=== PATIENT | male | born 1955 | race Caucasian/White ===

== ENCOUNTER → 2017-09-01 09:41 | Outpatient (CLI) | payer OTHER, SELFPAY ==
[2017-09-01 11:28] LABS: Alanine Aminotransferase 40 IU/L (21-72); Albumin 4.2 g/dL (3.5-5.0); Albumin Globulin Ratio 1.5 (1.0-2.8); Alkaline Phosphatase 63 U/L (38-126); Aspartate Aminotransferase 28 IU/L (17-59); Bilirubin Total 0.6 mg/dL (0.2-1.3); Bilirubin Unconjugated 0.4 mg/dL (0.0-1.1); Cholesterol 176 mg/dL (140-199); Globulin 2.8 g/dL (1.7-4.1); HDL Cholesterol 77 mg/dL (40-60); HEMOLYSIS < 15 (0-50); LDL Cholesterol Calculated 73 mg/dL (<100); Triglycerides 129 mg/dL (35-150)
== END ==
PROVIDERS: Family Provider Family Medicine; PCP Family Medicine; Visit Provider Family Medicine
DX: E78.00 Pure hypercholesterolemia, unspecified (principal)
CPT/HCPCS: 36415; 80061; 80076

== ENCOUNTER 2017-10-19 10:43 | Day surgery (SDC) | payer OTHER, SELFPAY ==
[2017-10-19] VITALS (19 sets, daily range): BP systolic 141–203; BP diastolic 68–109; PULSE 69–115; RESP 9–18; TEMP 36.9–38; O2SAT 80–98; BMI 48.7
--- NOTE | 2017-10-19 | PATH_ITS ---
[facility] Accession Number: [id number] . 01 Material submitted: . APPENDIX . 02 Diagnosis: Appendix, Appendectomy: Acute suppurative appendicitis with serositis. No evidence of dysplasia or malignancy. [facility]/10/24/2017 . 02 Electronically signed: . Victorina Cummins MD, Pathologist NPI- [id number] . 01 Gross description: . Received in formalin, labeled appendix, is an intact appendix (length-10.5 cm, diameter-0.9 cm) with jackson-brown smooth and shiny serosa and attached mesoappendix (up to 1.0 cm in depth). The resection margin is received stapled. The serosa is partially covered in jackson-white flaky friable exudate. The lumen contains red-brown watery fluid. The wall is up to 0.2 cm thick. No nodules, masses or lesions are identified. The resection margin is inked black. Section code: (A1) resection margin en face and three additional serial sections; (A2) one-half of the bivalve tip. ([id number]) /[facility] . 02 Pathologist provided ICD-10: K35.80 . 02 CPT . 755400 Performed at: 01 [facility] [address], [place], [place] [id number] MD Jaylen Alves MD Phone: [phone] Performed at: 02 [facility] [address] [place], [place] [id number] MD Sonu Corbin MD Phone: [phone]
[2017-10-19] MEDS: HYDROMORPHONE 0.5 MG INJ 1 MG IV ×3 (11:10→17:15)
[2017-10-19 11:49] LABS: Bacteria Urine None Seen; WBC Urine None Seen (0-5/HPF)
[2017-10-19 12:06] LABS: Add Manual Diff / Slide Review NO; Basophils Percent Auto 0.3 % (0-2); Eosinophils Percent Auto 0.2 % (2-4); Hematocrit 43.3 % (41-53); Hemoglobin 14.4 g/dL (13.5-17.5); Lymphocytes Percent Auto 8.1 % (25-40); Mean Corpuscular HGB Conc 33.4 % (30-36); Mean Corpuscular Hemoglobin 29.3 PG (26-34); Mean Corpuscular Volume 87.8 fL (80-100); Monocytes Percent Auto 7.1 % (3-14); Neutrophils Absolute Auto 14100 /uL (3000-5900); Neutrophils Percent Auto 84.3 % (50-75); Platelet Count 242 X10^3/uL (150-400); Red Blood Cell Count 4.93 X10^6/uL (4.5-5.9); Red Cell Distribution Width 14.7 % (11.6-14.8); White Blood Cell Count 16.8 X10^3/uL (4.5-11.0)
[2017-10-19 12:09] LABS: Alanine Aminotransferase 33 IU/L (21-72); Albumin 4.2 g/dL (3.5-5.0); Albumin Globulin Ratio 1.6 (1.0-2.8); Alkaline Phosphatase 65 U/L (38-126); Aspartate Aminotransferase 26 IU/L (17-59); BUN Creatinine Ratio 16.7 (6-22); Bilirubin Total 0.8 mg/dL (0.2-1.3); Blood Urea Nitrogen 15 mg/dL (9-20); Calcium 9.5 mg/dL (8.4-10.2); Carbon Dioxide 27 mmol/L (22-32); Chloride 102 mmol/L (98-107); Estimated Glomerular Filt Rate > 60.0 mL/min (>60); Globulin 2.7 g/dL (1.7-4.1); Glucose 118 mg/dL (80-110); HEMOLYSIS < 15 (0-50); Lipase 55 U/L (23-300); Potassium 4.2 mmol/L (3.4-5.1); Sodium 139 mmol/L (137-145); Total Protein 6.9 g/dL (6.3-8.2)
[2017-10-19 12:10] LABS: Lactate (Lactic Acid) 0.9 mmol/L (0.7-2.1)
[2017-10-19 12:25] LABS: Culture Indicated Urine Cult Not Indicated; RBC Urine 1-5/HPF (0-5/HPF)
--- NOTE | 2017-10-19 12:26 | DI.CT.S_ITS ---
PROCEDURE: CT ABDOMEN PELVIS W CON INDICATIONS: low right abd pain pain TECHNIQUE: After the administration of intravenous contrast, 5 mm thick sections acquired from the diaphragm to the symphysis. 5 mm coronal and sagittal reformats were acquired. For radiation dose reduction, the following was used: automated exposure control, adjustment of mA and/or kV according to patient size. COMPARISON: None. FINDINGS: Image quality: Excellent. ABDOMEN: Lung bases: Lung bases are clear. Heart size is normal. Solid organs: Liver is normal in size and enhancement. Gallbladder demonstrates cholelithiasis with no CT evidence of acute cholecystitis. Biliary system is non dilated. Pancreas enhances normally. Spleen is normal in size and enhancement. No adrenal nodules. Kidneys demonstrate normal size and enhancement, without hydronephrosis. Peritoneum and bowel: The appendix is enlarged with surrounding inflammation and wall thickening consistent with uncomplicated acute appendicitis. No obstruction or perforation (se 4 im 32). Small bowel and colon radiographic normal. The stomach is decompressed otherwise within normal limits. Nodes and vessels: No retroperitoneal or mesenteric adenopathy by size criteria. Aorta and inferior vena cava are normal in size. Miscellaneous: No ventral hernias. PELVIS: Genitourinary: Bladder wall thickness is normal. Miscellaneous: No inguinal hernias or adenopathy. 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 No vertebral body compression fractures. IMPRESSION: 1. Acute uncomplicated appendicitis. Please note, the appendix courses medially and superiorly from the cecum in the central portion of the abdomen. 2. Congenital T10 vertebral body anomaly. 3. Cholelithiasis with no CT evidence of acute cholecystitis. Dictated by: Alex Tapia M.D. on 10/19/2017 at 12:48 Approved by: Alex Tapia M.D. on 10/19/2017 at 12:55
--- NOTE | 2017-10-19 13:53 | ED_ITS ---
HPI - Abdominal Pain General Chief Complaint: Abdominal Pain Stated Complaint: ABDOMINAL PAINS Time Seen by Provider: 10/19/17 11:05 History of Present Illness HPI narrative: HPI 62-year-old morbidly obese male presents for evaluation of right lower abdominal pain that is been present since 3 AM. Patient unable to identify any provoking or relieving factors, continues to be a pass flatus, stool, but notes increased fullness and is belching more than normal. Patient denies urinary frequency or dysuria. Patient denies testicular or penile pain. M/S/F/SocHx notable for: please see HPI; remainder reviewed with patient and in chart. ROS: Negative constitutional, eye, cardiovascular, pulmonary, GI, , MSK, skin , neurologic, psychiatric, endocrine unless noted in the HPI. Exam Gen: pleasant, nontoxic-appearing, appears to be in mild to moderate discomfort. HEENT: NC, AT, PEERL, EOMI. Resp: Clear to auscultation bilaterally, normal work of breathing, no accessory muscle usage. Card: Regular rate and rhythm with no murmurs, rubs, or gallops, extremities warm and well perfused. GI: Non-tender to palpation throughout all quadrants, no focal tenderness at McBurney's point, negative Miranda's sign, non-distended, no bulges or masses appreciated, no rebound or guarding. : No right sided CVA tenderness to percussion, no left sided CVA tenderness to percussion. Normal male genitalia, testes and penis non-tender, no visual bulging in the inguinal crease bilaterally both at rest and with valsalva, no palpable protuberance to palpation in the inguinal canals bilaterally both at rest and with valsalva. However, there is right inguinal crease tenderness to palpation. MSK: No visible deformities, strength and tone WNL. Skin: Normal color with no visible lesions. Neuro: AO x 3, no facial asymmetry, vision and hearing WNL. Psych: Mood and affect appropriate. Labs / Imaging (pertinent): WBC 16.8, Hb 14.4, Na 139, K 4.2, total bilirubin 0.8, AST 26, ALT 33, ALP 65, lipase 55. UA - no bacteria, no WBCs, 1-5 RBCs, positive occult blood, negative nitrate, negative leukocyte esterase. CT abdomen/pelvis: acute uncomplicated appendicitis. Please note, the appendix courses immediately and superiorly from the cecum and the central portion of the abdomen. Congenital T10 vertebral body normally. Cholelithiasis with no CT evidence of acute cholecystitis. MDM Previous chart, nursing note, and vitals reviewed. A: 62-year-old morbidly obese male presents for evaluation of right lower abdominal pain that is been present since 3 AM. DDx: renal colic, UTI, pyelonephritis, AAA, biliary disease (colic/ cholelithiasis/cholecystitis), large bowel disease (diverticulitis/appendicitis) , direct or indirect inguinal hernia, testicular torsion, epididymitis, orchitis , epididymoorchitis, scrotal cellulitis. Evaluation: patient with acute uncomplicated appendicitis. IVF, hydromorphone 1 mg x 2, and 2 g cefotetan given. Surgery consulted. Disposition: admitted for operative intervention. Impression: appendicitis (please reference below for remainder of encounter information) Related Data Home Medications Medication Instructions Recorded Confirmed ALBUTEROL SULFATE (#VENTOLIN HFA) 0.09 mg IH Q4H PRN 10/19/17 10/19/17 ECONAZOLE 1% - 1 dose TOPICAL BID 10/19/17 10/19/17 (#SPECTAZOLE 1%) amlodipine [Norvasc] 5 mg PO DAILY 10/19/17 10/19/17 bupropion HCl [Wellbutrin SR] 100 mg PO DAILY 10/19/17 10/19/17 cetirizine [Zyrtec] 10 mg PO DAILY 10/19/17 10/19/17 fluticasone furoate [Flonase 1 spray INTRANASAL DAILY 10/19/17 10/19/17 Sensimist] fluticasone-salmeterol [Advair 1 inh INHALATION BID 10/19/17 10/19/17 Diskus] ibuprofen 200 mg PO DAILY 10/19/17 10/19/17 tizanidine 4 - 8 mg PO BEDTIME PRN 10/19/17 10/19/17 tramadol 50 mg PO BID 10/19/17 10/19/17 Previous Rx's Medication Instructions Recorded levothyroxine [Synthroid] 50 mcg PO QDAY #30 09/18/11 triamcinolone acetonide 0 gm TOPICAL BID #45 gm 09/18/11 Allergies Allergy/AdvReac Type Severity Reaction Status Date / Time No Known Drug Allergies Allergy Verified 10/19/17 17:46 [facility] Medical History Anxiety (Acute) Cholelithiasis (Acute) Depression (Acute) Hypertension (Acute) Hypothyroidism (Acute) Morbid obesity (Acute) Obstructive sleep apnea (Acute) Osteoarthritis (Acute) Surgical History History of arthroscopy of both knees (Acute) History of umbilical hernia repair (Acute) Family History: Reviewed 10/19/17 by Jim Yost MD Social History household members: spouse and children Smoking Status: Former smoker alcohol intake: current Exam Initial Vital Signs Initial Vital Signs: Vital Signs Pulse Rate 76 10/19/17 10:44 Respiratory Rate 15 10/19/17 10:44 Blood Pressure 203/106 H 10/19/17 10:44 Pulse Oximetry 98 10/19/17 10:44 Course Orders Ordered: Albuterol (Ventolin Hfa) 1 puff INH Q4H PRN PRN Reason: Dyspnea Amlodipine Besylate (Norvasc) 5 mg PO DAILY [facility] Last Admin: 10/20/17 07:09 Dose: 5 mg Bupropion HCl (Wellbutrin Sr) 100 mg PO DAILY [facility] Hydralazine HCl (Apresoline) 10 mg IV Q6H PRN PRN Reason: Hypertension Hydromorphone HCl (Dilaudid) 1 mg IV Q3H PRN PRN Reason: Pain, Severe (7-10) Ibuprofen (Advil) 200 mg PO DAILY [facility] Levothyroxine Sodium (Synthroid) 50 mcg PO 0700 [facility] Last Admin: 10/20/17 07:09 Dose: 50 mcg Loratadine (Claritin) 10 mg PO DAILY [facility] Non-Formulary Medication (Econazole 1% - (#Spectazole 1%)) 1 dose TOP BID JU Non-Formulary Medication (Fluticasone Furoate [Flonase Sensimist]) 1 spray NASAL DAILY [facility] Oxycodone HCl (Percolone) 5 mg PO Q3H PRN PRN Reason: Pain, Moderate (4-6) Last Admin: 10/20/17 06:01 Dose: 5 mg Admin: 10/20/17 00:52 Dose: 5 mg Pantoprazole Sodium (Protonix) 40 mg PO 0700 JU Fluticasone/Salmeterol (Advair 250/50 Diskus) 1 puff INH RTBID JU Sodium Chloride (Normal Saline 0.9% Flush) 10 ml IV BID JU Sodium Chloride (Normal Saline 0.9% Flush) 10 ml IV PRN PRN PRN Reason: Flush Tizanidine HCl (Zanaflex) 4 mg PO BEDTIME PRN PRN Reason: Muscle Spasm Tramadol HCl (Ultram) 50 mg PO BID JU Discontinued Medications Bupivacaine HCl (Sensorcaine 0.5% (Pf)) 30 ml INJ INTRA-OP ONE Stop: 10/19/17 20:38 Last Admin: 10/19/17 20:38 Dose: 30 ml Fentanyl (Sublimaze) 50 mcg IV Q5MIN PRN PRN Reason: Pain, Moderate (4-6) Last Admin: 10/19/17 21:27 Dose: 50 mcg Hydralazine HCl (Apresoline) 10 mg IV Q6H PRN PRN Reason: Hypertension Hydromorphone HCl (Dilaudid) 1 mg IV NOW ONE Stop: 10/19/17 11:06 Last Admin: 10/19/17 11:10 Dose: 1 mg Hydromorphone HCl (Dilaudid) 0.5 mg IV NOW ONE Stop: 10/19/17 12:27 Last Admin: 10/19/17 14:22 Dose: 0.5 mg Hydromorphone HCl (Dilaudid) 1 mg IV NOW ONE Stop: 10/19/17 13:52 Last Admin: 10/19/17 15:06 Dose: 1 mg Hydromorphone HCl (Dilaudid) 1 mg IV NOW PRN PRN Reason: pain Last Admin: 10/19/17 17:15 Dose: 1 mg Hydromorphone HCl (Dilaudid) 0.25 mg IV Q5MIN PRN PRN Reason: Pain, Mild (1-3) Cefotetan Disodium/Dextrose (Cefotan) 2 gm in 50 mls @ 100 mls/hr IV NOW ONE Stop: 10/19/17 14:19 Last Admin: 10/19/17 14:36 Dose: 100 mls/hr Sodium Chloride (Normal Saline 0.9%) 1,000 mls @ 1,000 mls/hr IV BOLUS ONE Stop: 10/19/17 14:49 Last Admin: 10/19/17 14:27 Dose: 1,000 mls/hr Cefotetan Disodium/Dextrose (Cefotan) 2 gm in 50 mls @ 100 mls/hr IV NOW ONE Stop: 10/19/17 19:44 Last Infusion: 10/19/17 19:25 Dose: 0 mls/hr Admin: 10/19/17 19:20 Dose: 100 mls/hr Lactated Ringer's (Lactated Ringers) 1,000 mls @ 125 mls/hr IV CONT JU Last Infusion: 10/19/17 22:22 Dose: 0 mls/hr Admin: 10/19/17 20:35 Dose: 21 mls/hr Infusion: 10/19/17 20:35 Dose: 21 mls/hr Admin: 10/19/17 19:16 Dose: 21 mls/hr Lidocaine/Epinephrine (Xylocaine 1% W/Epi) 20 ml INJ INTRA-OP ONE Stop: 10/19/17 20:38 Last Admin: 10/19/17 20:39 Dose: 30 ml Meperidine HCl (Demerol) 25 mg IV Q5MIN PRN PRN Reason: Pain and shivering Metoclopramide HCl (Reglan) 10 mg IV NOW PRN PRN Reason: Nausea And Vomiting Non-Formulary Medication (Cetirizine [Zyrtec]) 10 mg PO DAILY [facility] Ondansetron HCl (Zofran) 4 mg IV NOW PRN PRN Reason: Nausea And Vomiting Vital Signs - 8 hr 10/20/17 05:33 10/20/17 07:00 10/20/17 07:49 Temperature 97.6 F 98.1 F Pulse Rate 77 77 77 Respiratory Rate 16 16 Blood Pressure 142/93 H 156/92 H 160/95 H Pulse Oximetry 94 94 MDM - Abdominal Pain Lab Data Result diagrams: 10/19/17 11:56 10/19/17 11:56 Lab Results 10/19/17 10/19/17 10/19/17 Range/Units 10:59 11:56 11:56 WBC 16.8 H (4.5-11.0) X10^3/uL RBC 4.93 (4.5-5.9) X10^6/uL Hgb 14.4 (13.5-17.5) g/dL Hct 43.3 (41-53) % MCV 87.8 (80-100) fL MCH 29.3 (26-34) PG MCHC 33.4 (30-36) % RDW 14.7 (11.6-14.8) % Plt Count 242 (150-400) X10^3/uL Neut % (Auto) 84.3 H (50-75) % Lymph % (Auto) 8.1 L (25-40) % [place] % (Auto) 7.1 (3-14) % Eos % (Auto) 0.2 L (2-4) % Baso % (Auto) 0.3 (0-2) % Neut # (Auto) 25060 H (9074-8676) /uL Sodium 139 (137-145) mmol/L Potassium 4.2 (3.4-5.1) mmol/L Chloride 102 (98-107) mmol/L Carbon Dioxide 27 (22-32) mmol/L BUN 15 (9-20) mg/dL Creatinine 0.90 (0.66-1.25) mg/dL Estimated GFR > 60.0 (>60) mL/min BUN/Creatinine Ratio 16.7 (6-22) Glucose 118 H (80-110) mg/dL Lactate (0.7-2.1) mmol/L Calcium 9.5 (8.4-10.2) mg/dL Total Bilirubin 0.8 (0.2-1.3) mg/dL AST 26 (17-59) IU/L ALT 33 (21-72) IU/L Alkaline Phosphatase 65 (38-126) U/L Total Protein 6.9 (6.3-8.2) g/dL Albumin 4.2 (3.5-5.0) g/dL Globulin 2.7 (1.7-4.1) g/dL Albumin/Globulin Ratio 1.6 (1.0-2.8) Lipase 55 (23-300) U/L Urine RBC 1-5/hpf (0-5/HPF) Urine WBC None seen (0-5/HPF) Urine Bacteria None seen (None) Ur Culture Indicated? Cult not indicated Micro UA Comment Not Reportable 10/19/17 Range/Units 11:56 WBC (4.5-11.0) X10^3/uL RBC (4.5-5.9) X10^6/uL Hgb (13.5-17.5) g/dL Hct (41-53) % MCV (80-100) fL MCH (26-34) PG MCHC (30-36) % RDW (11.6-14.8) % Plt Count (150-400) X10^3/uL Neut % (Auto) (50-75) % Lymph % (Auto) (25-40) % [place] % (Auto) (3-14) % Eos % (Auto) (2-4) % Baso % (Auto) (0-2) % Neut # (Auto) (0106-3178) /uL Sodium (137-145) mmol/L Potassium (3.4-5.1) mmol/L Chloride (98-107) mmol/L Carbon Dioxide (22-32) mmol/L BUN (9-20) mg/dL Creatinine (0.66-1.25) mg/dL Estimated GFR (>60) mL/min BUN/Creatinine Ratio (6-22) Glucose (80-110) mg/dL Lactate 0.9 (0.7-2.1) mmol/L Calcium (8.4-10.2) mg/dL Total Bilirubin (0.2-1.3) mg/dL AST (17-59) IU/L ALT (21-72) IU/L Alkaline Phosphatase (38-126) U/L Total Protein (6.3-8.2) g/dL Albumin (3.5-5.0) g/dL Globulin (1.7-4.1) g/dL Albumin/Globulin Ratio (1.0-2.8) Lipase (23-300) U/L Urine RBC (0-5/HPF) Urine WBC (0-5/HPF) Urine Bacteria (None) Ur Culture Indicated? Micro UA Comment Point of care testing: Urine Dip Bedside Urine Glucose Negative Bedside Urine Bilirubin - Negative Bedside Urine Ketone - Negative Urine Specific [place] 1.020 Bedside Urine Occult Blood +/- Bedside Urine pH 7.5 Bedside Urine Protein - Negative Bedside Urine Urobilinogen - Negative Bedside Urine Nitrite - Negative Bedside Urine Leukocytes - Negative Esterase Discharge Plan Departure Patient Disposition: Admitted As Inpatient Discharge Date/Time: 10/19/17 18:40 Interventions: ED Discharge Assessment Last Done: 10/19/17 18:40 Admit Date/Time: 10/19/17 17:23 Admit Provider: Jim Yost
[2017-10-19] MEDS: HYDROMORPHONE 1 MG INJ 0.5 MG IV (14:22)
[2017-10-19] MEDS: SODIUM CHLORIDE 0.9% 1,000 ML 1000 ML IV (14:27)
[2017-10-19] MEDS: CEFOTETAN 2 GM/50 ML PIGGYBACK IV ×2 (14:36→19:20)
--- NOTE | 2017-10-19 15:22 | PC.NURSE ---
patient states his pain is much better now. Plan is to admit patient for surgery. schedule is quite full and so surgery will be later. Attempting to admit to the floor Hospitalist notified and ER charge notified.
--- NOTE | 2017-10-19 18:30 | P.HP_ITS ---
History of Present Illness Date Patient Seen: 10/19/17 Time Patient Seen: 18:25 Chief complaint: ABDOMINAL PAINS Narrative: 62-year-old morbidly obese male who presented the emergency department earlier this afternoon with complaints of progressive sharp right lower quadrant abdominal pain throughout the entire day today. He awoke feeling somewhat unwell but was able to eat breakfast at approximately 6 o' clock this morning. However, he began to feel nauseated shortly thereafter. He did not vomit. He is not nauseated currently. However he is anorexic. He felt like taking no oral intake throughout the remainder of the day. In fact, his breakfast was his last meal of the day today. Pain became much more sharp and unrelenting in nature isolated to the right lower quadrant. Pain does not radiate. He has had no subjective fever or chills. No difficulties with dysuria or hematuria. He has occasional constipation but this is not new given the current episode. No recent melena, hematochezia, or bright red blood per rectum. Patient History Medical History Anxiety (Acute) Cholelithiasis (Acute) Depression (Acute) Hypertension (Acute) Hypothyroidism (Acute) Morbid obesity (Acute) Obstructive sleep apnea (Acute) Osteoarthritis (Acute) Surgical History History of arthroscopy of both knees (Acute) History of umbilical hernia repair (Acute) Family & Social History Family History: Reviewed 10/19/17 by Jim Yost MD Meds Home Medications Medication Instructions Recorded Confirmed Type levothyroxine [Synthroid] 50 mcg PO QDAY #30 09/18/11 10/19/17 Rx triamcinolone acetonide 0 gm TOPICAL BID #45 gm 09/18/11 10/19/17 Rx ALBUTEROL SULFATE (#VENTOLIN HFA) 0.09 mg IH Q4H PRN 10/19/17 10/19/17 History ECONAZOLE 1% - 1 dose TOPICAL BID 10/19/17 10/19/17 History (#SPECTAZOLE 1%) amlodipine [Norvasc] 5 mg PO DAILY 10/19/17 10/19/17 History bupropion HCl [Wellbutrin SR] 100 mg PO DAILY 10/19/17 10/19/17 History cetirizine [Zyrtec] 10 mg PO DAILY 10/19/17 10/19/17 History fluticasone furoate [Flonase 1 spray INTRANASAL DAILY 10/19/17 10/19/17 History Sensimist] fluticasone-salmeterol [Advair 1 inh INHALATION BID 10/19/17 10/19/17 History Diskus] ibuprofen 200 mg PO DAILY 10/19/17 10/19/17 History tizanidine 4 - 8 mg PO BEDTIME PRN 10/19/17 10/19/17 History tramadol 50 mg PO BID 10/19/17 10/19/17 History Allergies Allergy/AdvReac Type Severity Reaction Status Date / Time No Known Drug Allergies Allergy Verified 10/19/17 17:46 Review of Systems Review of Systems All systems reviewed & are unremarkable except as noted in HPI and below Exam Vital Signs (past 8 hours): - 10/19/17 10:44 10/19/17 10:59 10/19/17 12:00 Temperature 98.5 F Pulse Rate 76 69 Respiratory Rate 15 18 Blood Pressure 203/106 H Blood Pressure [Right Arm] 167/93 H Pulse Oximetry 98 94 10/19/17 13:25 10/19/17 14:30 10/19/17 16:51 Temperature Pulse Rate 74 82 93 H Respiratory Rate 14 17 16 Blood Pressure Blood Pressure [Right Arm] 143/68 H 163/96 H 141/80 H Pulse Oximetry 97 97 10/19/17 17:58 Temperature 100.4 F H Pulse Rate 107 H Respiratory Rate 16 Blood Pressure 141/89 H Blood Pressure [Right Arm] Pulse Oximetry 92 Oxygen Delivery Method Room Air Narrative Exam Narrative: Morbidly obese male in excess of 300 lb lying in a gurney in mild discomfort. No acute distress however. Alert oriented x3. is at the bedside. Sclera nonicteric Regular rate and rhythm Poor inspiratory effort with mild relative hypoxia. Patient states deep breaths exacerbated his pain Abdomen is morbidly obese and nondistended. Well-healed scars from previous hernia repair. Tender in the right lower quadrant with involuntary guarding. Positive Rovsing sign. Extremities show no clubbing or cyanosis Objective Labs Result Diagrams: 10/19/17 11:56 10/19/17 11:56 Labs: Laboratory Results - last 24 hr 10/19/17 10/19/17 10/19/17 10:59 11:56 11:56 WBC 16.8 H RBC 4.93 Hgb 14.4 Hct 43.3 MCV 87.8 MCH 29.3 MCHC 33.4 RDW 14.7 Plt Count 242 Neut % (Auto) 84.3 H Lymph % (Auto) 8.1 L [place] % (Auto) 7.1 Eos % (Auto) 0.2 L Baso % (Auto) 0.3 Neut # (Auto) 58990 H Sodium 139 Potassium 4.2 Chloride 102 Carbon Dioxide 27 BUN 15 Creatinine 0.90 Estimated GFR > 60.0 BUN/Creatinine Ratio 16.7 Glucose 118 H Lactate Calcium 9.5 Total Bilirubin 0.8 AST 26 ALT 33 Alkaline Phosphatase 65 Total Protein 6.9 Albumin 4.2 Globulin 2.7 Albumin/Globulin Ratio 1.6 Lipase 55 Urine RBC 1-5/hpf Urine WBC None seen Urine Bacteria None seen Ur Culture Indicated? Cult not indicated Micro UA Comment Not Reportable 10/19/17 11:56 WBC RBC Hgb Hct MCV MCH MCHC RDW Plt Count Neut % (Auto) Lymph % (Auto) [place] % (Auto) Eos % (Auto) Baso % (Auto) Neut # (Auto) Sodium Potassium Chloride Carbon Dioxide BUN Creatinine Estimated GFR BUN/Creatinine Ratio Glucose Lactate 0.9 Calcium Total Bilirubin AST ALT Alkaline Phosphatase Total Protein Albumin Globulin Albumin/Globulin Ratio Lipase Urine RBC Urine WBC Urine Bacteria Ur Culture Indicated? Micro UA Comment I have personally reviewed his CT scan of the abdomen and pelvis. He has evidence of acute appendicitis with enlarged appendix and associated inflammatory changes coursing medially at the level the umbilicus. No free fluid. No obvious perforation. Incidental cholelithiasis is noted with no inflammation around the gallbladder. Otherwise normal study. Assessment & Plan Plan: Assessment/Plan Narrative: 62-year-old morbidly obese male with evidence of acute appendicitis. Examination, CT scan findings, and laboratory findings are consistent with the diagnosis. I have recommended laparoscopic appendectomy. Technical details of the procedure were discussed. Anticipated recovery and healing times are also reviewed with him and his . Risks, benefits, alternatives of surgery were explained. Risks including but not limited to anesthesia, bleeding, infection, pain, abscess, scars, need to convert to open procedure, need for drains, need for transfusion, colon injury, small bowel injury, bladder injury, right ureter injury, liver injury, gastric injury, appendiceal stump leak, and need for further major abdominal surgery were all discussed in detail. I also explained small possibility of normal appendix, but I would plan appendectomy even if the appendix appeared grossly normal. I also expressed my concern regarding his relative hypo ventilation due to morbid obesity. I emphasized the absolute necessity for postoperative deep breathing, coughing, and incentive spirometry. All questions were answered to his satisfaction, and he voiced understanding. Consent was placed on the chart. Orders were written. We will proceed urgently this evening.
[2017-10-19] MEDS: LACTATED RINGERS 1,000 ML 21 ML IV ×2 (19:16→20:35)
--- NOTE | 2017-10-19 19:52 | SUR.OPER ---
Supine on padded OR bed, head on pillow, arms secured on padded arm boards at <90 degrees abduction, legs uncrossed, safety belt at thigh, tape over blanket over lower legs.
[2017-10-19] MEDS: BUPIVACAINE 0.5% (PF) VIAL 30 ML INJ (20:38)
[2017-10-19] MEDS: LIDOCAINE 1% W/EPI INJ 20 ML INJ (20:39)
[2017-10-19] MEDS: fentaNYL 100 MCG/2 ML INJ 50 MCG IV (21:27)
--- NOTE | 2017-10-19 21:36 | P.OP_ITS ---
Operative Date/Time/Diagnoses Date of procedure: 10/19/17 Time of procedure: 21:26 Pre-op diagnosis: Acute suppurative appendicitis Post-op diagnosis: same Procedure & Clinicians Procedure: 1. Laparoscopic appendectomy Same procedure as scheduled: Yes Indications: 62-year-old morbidly obese male who presented to the emergency department with progressive right-sided abdominal pain throughout the course of the day today. Examination and evaluation were consistent with acute appendicitis. Emergent laparoscopic appendectomy was recommended. Surgeon: Jim Yost Click Yes if Unassisted: Yes Anesthesia Type: General Operative Notes Findings: 1. Acutely inflamed suppurative appendix without evidence of rupture 2. No significant free fluid in the abdomen without evidence of any abscess as well 3. Generous thick omentum draping the entire abdominal contents. The only visible structure was the left lobe of the liver which appeared grossly normal. I could not visualize any other structures. Closure Type: primary Specimen(s): other (Appendix) Implants & Drains: None Applied: catheter (Lanier catheter for the case then removed afterwards) Estimated Blood Loss (mL): 20 Blood products transfused: none Procedure in detail: After obtaining informed consent patient was brought to the operating room placed supine on the table. After satisfactory induction of anesthesia the abdomen was prepped and draped in usual sterile fashion after placing a Lanier catheter into the urinary bladder for the case. A SCOAP time- out was performed per standard protocol. A 1 :1 mixture 1% lidocaine with 1 100 ,000 epinephrine and 0.5% plain Marcaine was injected in the skin and subcutaneous tissue of the upper midline abdomen several cm above the umbilicus for postoperative analgesia. A vertical midline incision was made for distance of approximately 3 cm at that location with a 11 scalpel blade. Blunt dissection revealed the rectus fascia which was divided in the midline under direct visualization with the 11 scalpel blade. Fascial edges was secured bilaterally with Darci clamps and elevated into the operative field. Two individual 0 Vicryl sutures were placed superiorly and inferiorly to secure the fascia. Underlying peritoneum was entered under direct visualization with a hemostat and a 12 mm blunt Xiong trocar was inserted. Carbon dioxide pneumoperitoneum was created in the abdomen was visually explored with a 30 degree 5 mm laparoscoped. Findings are as above. Under direct laparoscopic visualization to individual bariatric 5 mm trocars were inserted into the lower left abdomen after achieving local anesthesia. Bariatric instruments were used to manipulate the omentum in order to expose the cecum. The cecum was then followed to the base of the appendix. The appendix was noted to be suppurative and acutely inflamed. There were inflammatory adhesions to the adjacent terminal ileum. Meticulous blunt dissection was employed to elevate the appendix into the operative field. The dissection was somewhat difficult because of the patient's body habitus and acute inflammatory process. Eventually we were able to liberate the appendix and divide the mesoappendix with [place] dissect air is adjacent to the appendix itself. Mesoappendix was then divided with an application of the Endo-[place] 45 mm stapler using a vascular load. A 2nd application of the vascular stapler was employed to complete the division of the mesoappendix adjacent to the base of the appendix. Hemostasis was verified. Base of the appendix was soft and divided with a single application of the Endo [place] 45 mm stapler using a tissue load. Specimen was placed in an endo-pouch and retrieved through the 12 mm trocar site. Specimen was sent for permanent section. All staple lines were then meticulously examined and noted to be intact. Hemostasis was verified. No evidence of any appendiceal stump leak was noted. Right lower quadrant was irrigated with copious amount sterile saline solution which was suctioned from the abdomen and noted to be clear. Instruments and trocars were then removed and hemostasis verified. Carbon dioxide was evacuated. Fascia at the supraumbilical incision was closed with the previously placed 0 Vicryl suture. Skin at all 3 incisions was then closed in a running subcuticular fashion using 4 0 Monocryl suture. Dermal adhesive was placed to the skin. Anesthesia was reversed the patient extubated in the operating room. Lanier catheter was removed at the end of the case. He was taken recovery in stable condition. Complications: none Condition: stable Disposition: PACU Plan for aftercare: 1. Admit the regular surgical floor for ongoing convalescence
--- NOTE | 2017-10-19 21:51 | SUR.PHASEI ---
BP 176/104, O2 SAT 89-92% 3LNC. Dr Yost notified, orders pending, ok to transfer per MD.
--- NOTE | 2017-10-19 21:59 | SUR.PHASEI ---
Report called to Delma.
--- NOTE | 2017-10-19 22:20 | SUR.PHASEI ---
Patient transferred to the floor with oxygen. VS unchanged. Surgical sites CDI. RT present. Report to ABBI Koroma. Partial with patient, glasses and belongings bag with spouse. IV saline locked.
[2017-10-20 00:10] VITALS: BP 175/94; PULSE 92; RESP 16; TEMP 36.8; O2SAT 94
[2017-10-20] MEDS: OXYCODONE IR 5 MG TABLET PO ×2 (00:52→06:01)
[2017-10-20 05:33] VITALS: BP 142/93; PULSE 77; RESP 16; TEMP 36.4; O2SAT 94
[2017-10-20 07:00] VITALS: BP 156/92; PULSE 77
[2017-10-20] MEDS: LEVOTHYROXINE 50 MCG TABLET PO (07:09)
[2017-10-20] MEDS: AMLODIPINE 5 MG TABLET PO (07:09)
--- NOTE | 2017-10-20 07:27 | PC.NURSE ---
0763 [facility]. [facility], admin. Last B/P 156/92, HR 77, denies any HALL or any S/S of hypertension. Report given to day RN. Will monitor.
[2017-10-20 07:49] VITALS: BP 160/95; PULSE 77; RESP 16; TEMP 36.7; O2SAT 94
[2017-10-20] MEDS: SODIUM CHLORIDE 0.9% FLUSH 10 ML IV (08:36)
[2017-10-20] MEDS: buPROPion SR 100 MG TAB PO (08:36)
[2017-10-20] MEDS: IBUPROFEN 200 MG TABLET PO (08:36)
[2017-10-20] MEDS: TRAMADOL 50 MG TABLET PO (08:36)
[2017-10-20] MEDS: LORATADINE 10 MG TABLET PO (08:37)
--- NOTE | 2017-10-20 08:43 | PM.DS.1 ---
History of Present Illness Date Patient Seen: 10/20/17 Time Patient Seen: 08:43 Chief complaint: ABDOMINAL PAINS Narrative: 62-year-old morbidly obese male who presented the emergency department earlier this afternoon with complaints of progressive sharp right lower quadrant abdominal pain throughout the entire day today. He awoke feeling somewhat unwell but was able to eat breakfast at approximately 6 o'clock this morning. However, he began to feel nauseated shortly thereafter. He did not vomit. He is not nauseated currently. However he is anorexic. He felt like taking no oral intake throughout the remainder of the day. In fact, his breakfast was his last meal of the day today. Pain became much more sharp and unrelenting in nature isolated to the right lower quadrant. Pain does not radiate. He has had no subjective fever or chills. No difficulties with dysuria or hematuria. He has occasional constipation but this is not new given the current episode. No recent melena, hematochezia, or bright red blood per rectum. Discharge Providers Date of admission: 10/19/17 17:23 Primary care physician: Niles Wesley MD Consults: 10/19/17 18:01 Consult to Respiratory Therapy Evaluate & Treat Comment: Physician Instructions: Evaluate and treat 10/19/17 19:15 Consult to Discharge Planning Routine Comment: Discharge provider: Jim Yost MD Summary Discharge Diagnosis: 1. Acute suppurative appendicitis 2. Morbid obesity 3. Hypoventilation syndrome secondary to morbid obesity 4. Osteoarthritis 5. Chronic back pain 6. History of umbilical hernia repair with mesh 7. History of bilateral knee arthroscopy 8. Obstructive sleep apnea 9. Asthma 10. Hypertension 11. Seasonal allergies 12. Depression and anxiety 13. Muscle spasm 14. Hypothyroidism Hospital Course: Patient was taken from the emergency department to the operating room for emergent laparoscopic appendectomy. He tolerated the procedure well. Postoperatively he did have significant hypoventilation and obstructive sleep apnea consistent with his baseline due to morbid obesity. He was initially placed on CPAP at night and oxygen therapy which was weaned by postoperative day 1. He is stable on room air. He is ambulating without difficulty. His pain is well controlled with oral agents. He has had return of spontaneous bowel bladder function. Incisions are healing nicely without drainage. He has no evidence of any infectious complications. He is tolerating a regular diet without difficulty. His initial postoperative hypertension has resolved with medications and he has been restarted on his usual home regimen to good effect. We discussed weight loss and weight control which I believe would benefit him greatly. Because of his stable condition on postoperative day 1 he is discharged home. He has been instructed to call or return sooner before his scheduled appointment in 2 weeks if he has any fever, chills, nausea, vomiting, inability to tolerate a diet, progressive pain, shortness of breath, or wound drainage. Status at Discharge Cognitive/behavioral status at discharge: Alert oriented x3 Functional status at discharge: independent ambulation Overall status at discharge: patient is progressing back to baseline Time Spent with Patient Less than 30 minutes Exam Vital Signs (past 8 hours): - 10/20/17 05:33 10/20/17 07:00 10/20/17 07:49 Temperature 97.6 F 98.1 F Pulse Rate 77 77 77 Respiratory Rate 16 16 Blood Pressure 142/93 H 156/92 H 160/95 H Pulse Oximetry 94 94 Oxygen Delivery Method Nasal Cannula Oxygen Flow Rate 1 Narrative Exam Narrative: Well-nourished well-developed morbidly obese male lying comfortably in bed in no acute distress. Alert oriented x3. Sclera nonicteric Room-air saturation 92% No fevers or tachycardia since surgery. Blood pressure has returned to baseline levels as well Chest clear to auscultation although his breath sounds are diminished bilaterally due to body habitus. No crackles or wheezes. Regular rate and rhythm Abdomen is morbidly obese but soft and nondistended. He is appropriately tender to palpation at the incisions without guarding or rebound. Wounds are all clean, dry, and intact without erythema or ecchymoses. Extremities show no clubbing or cyanosis Objective Labs Result Diagrams: 10/19/17 11:56 10/19/17 11:56 Labs: Laboratory Results - last 24 hr 10/19/17 10/19/17 10/19/17 10:59 11:56 11:56 WBC 16.8 H RBC 4.93 Hgb 14.4 Hct 43.3 MCV 87.8 MCH 29.3 MCHC 33.4 RDW 14.7 Plt Count 242 Neut % (Auto) 84.3 H Lymph % (Auto) 8.1 L Culberson % (Auto) 7.1 Eos % (Auto) 0.2 L Baso % (Auto) 0.3 Neut # (Auto) 72253 H Sodium 139 Potassium 4.2 Chloride 102 Carbon Dioxide 27 BUN 15 Creatinine 0.90 Estimated GFR > 60.0 BUN/Creatinine Ratio 16.7 Glucose 118 H Lactate Calcium 9.5 Total Bilirubin 0.8 AST 26 ALT 33 Alkaline Phosphatase 65 Total Protein 6.9 Albumin 4.2 Globulin 2.7 Albumin/Globulin Ratio 1.6 Lipase 55 Urine RBC 1-5/hpf Urine WBC None seen Urine Bacteria None seen Ur Culture Indicated? Cult not indicated Micro UA Comment Not Reportable 10/19/17 11:56 WBC RBC Hgb Hct MCV MCH MCHC RDW Plt Count Neut % (Auto) Lymph % (Auto) Culbers[place] % (Auto) Eos % (Auto) Baso % (Auto) Neut # (Auto) Sodium Potassium Chloride Carbon Dioxide BUN Creatinine Estimated GFR BUN/Creatinine Ratio Glucose Lactate 0.9 Calcium Total Bilirubin AST ALT Alkaline Phosphatase Total Protein Albumin Globulin Albumin/Globulin Ratio Lipase Urine RBC Urine WBC Urine Bacteria Ur Culture Indicated? Micro UA Comment Discharge Plan Discharge Plan Patient Disposition: Home, Self-Care Discharge comment: Use CPAP as directed Provider Discharge Instructions Diet: Diet as Tolerated Activity: May walk as much as desired May ride in vehicle May climb stairs May shower beginning October 20, 2017 No [address] while taking opioid pain medications Cold/Heat Therapy: May apply ice pack to incisions as needed for comfort Other treatments: Use incentive spirometry every hour while awake as instructed Wound Care Report to your healthcare provider any signs of infection, such as:: chills, fever, increased pain and unusual drainage Dressing: No dressing necessary Other wound treatment: Do not soak incisions in bathtub or pool for 2 weeks Discharge Data Primary Care Provider: Niles Wesley Attending Provider: Jim Yost Admit Date/Time: 10/19/17 17:23 Quality VTE Deep Vein Thrombosis/Pulmonary Embolism Present on Admission: No
[2017-10-20 09:00] VITALS: PULSE 86; RESP 16; O2SAT 95
[2017-10-20] MEDS: FLUTICASONE/SALMETEROL 250/50 14 PUFF DISKUS INH (09:00)
--- NOTE | 2017-10-20 09:53 | PC.NURSE ---
Pt alert and oriented, offers no overt c/o presently. anticipates going home today. Dr. Yost in to discuss D/C.
--- NOTE | 2017-10-20 10:03 | CM.DPNOTE ---
Discharge Planning/Care Management DCP: case received, EMR reviewed, conferred with ABBI Ramires and then met with pt and his Angelique. Introduced self and role. Pt is a 62 year old male who admitted yesterday evening to care of surgeon: Dr. Yost. Payer: [facility] Pt was taken to surgery for a lap appendectomy (in setting of morbid obesity). Dr. Yost saw him this morning, said he was doing very well and has ok'd him for home today. Pt and Angelique both say they are comfortable with this. Pt is mobilizing and eating without difficulty at this time. P: home today, clinic followup, when RN completes the dc paperwork. CM Discharge Assessment Start: 10/20/17 10:01 Freq: Status: Active Protocol: Document 10/20/17 10:02 ITV (Rec: 10/20/17 10:03 ITV [id number]) Discharge Planning Assessment History Provided By Patient Family Member Medical Record Is this patient on Medicare? No Prior Living Arrangements House Household Members spouse children Independent with ADL's Yes Is patient alert and oriented? Yes Referrals Initiated None needed Discharge Plan Home Transportation Arrangement is here to drive him Review Status In Process Next Review Type Continued Stay Review
--- NOTE | 2017-10-20 11:47 | PC.NURSE ---
12:30 Pt given D/C instructions along with his . Pt and state understanding of instructions and asked pertinent questions. Pt did have BM prior to D/C. Iv H.L. D/C'd intact. Pt's gait steady though slow. Pt able to get into private vehicle with minimal assist. Good supportive family at D/C
== END 2017-10-20 11:35 | disposition home or self-care (01) ==
LOC: ED 14:26 → AC 10-20 08:43 → OR 10-21 11:55 → AC 10-21 12:06
PROVIDERS: Emergency Provider Emergency Medicine; Family Provider Family Medicine; PCP Family Medicine; Visit Provider Surgery
PROC: 0DTJ4ZZ Resection of Appendix, Percutaneous Endoscopic Approach (ICD-10-PCS; CPT 44970; principal; 2017-10-19 17:00)
DX: K35.80 Unspecified acute appendicitis (principal); E66.01 Morbid (severe) obesity due to excess calories; Z87.891 Personal history of nicotine dependence
CPT/HCPCS: 44970; 36415; 74177; 80053; 81003; 81015; 83605; 83690; 85025; 94640; 94762; 96365; 96375; 96376; 99220; 99283; 99284; G0378; J0330; J1100; J1170; J2405; J2704; J3010; Q9967

== ENCOUNTER → 2018-05-23 10:22 | Outpatient (CLI) | payer OTHER, SELFPAY ==
[2017-10-19 23:46] VITALS: BMI 48.7
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
== END ==
PROVIDERS: PCP Family Medicine; Visit Provider Family Medicine
DX: M50.31 Other cervical disc degeneration, high cervical region (principal); M47.812 Spondylosis without myelopathy or radiculopathy, cervical region; Z98.1 Arthrodesis status
CPT/HCPCS: 72050

== ENCOUNTER 2018-10-10 07:30 | Outpatient (CLI) | payer OTHER, SELFPAY ==
[2018-06-05 10:41] VITALS: BMI 48.7
[2018-10-10] VITALS (10 sets, daily range): BP systolic 130–150; BP diastolic 84–107; PULSE 65–76; RESP 16; TEMP 36.9; O2SAT 94–98
--- NOTE | 2018-10-10 07:33 | DI.RAD.S_ITS ---
PROCEDURE: PAIN C/T INTERLAMINAR INJECT INDICATIONS: SPINAL STENOSIS FINDINGS: Fluoroscopic spot filming was performed to verify placement of spinal needles at the C5-C6 level(s), as labeled on the films. Appropriate location(s) of the needle tip(s) was confirmed by injection of iodinated contrast. IMPRESSION: Fluoroscopy for pain management. Dictated by: Yarelis Foss M.D. on 10/10/2018 at 14:19 Approved by: Yarelis Foss M.D. on 10/10/2018 at 14:19
[2018-10-10] MEDS: MIDAZOLAM 5 MG/5 ML VIAL IV (08:37)
[2018-10-10] MEDS: fentaNYL 100 MCG/2 ML INJ 50 MCG IV (08:37)
[2018-10-10] MEDS: IOPAMIDOL 15 ML VIAL 3 ML INJ (08:39)
[2018-10-10] MEDS: LIDOCAINE 1% 20 ML INJ 5 ML INJ (08:40)
[2018-10-10] MEDS: DEXAMETHASONE 10 MG/ML VIAL 30 MG INJ (08:40)
--- NOTE | 2018-10-10 08:52 | PC.NURSE ---
Pt tolerated procedure well after we were able to position him correctly. Able to get patient off the table and into the wheelchair with standby assist. Transferred pt via wheelchair to pre procedure room for continued monitoring with Erika GO.
--- NOTE | 2018-10-10 08:58 | P.PCN_ITS ---
Procedures Date/Time Date of procedure: 10/10/18 Time of procedure: 08:57 General Procedure description: PREOP DIAGNOSIS 1. CERVICAL STENOSIS, 2. CERVICAL HNP WITH UPPER EXTREMITY RADICULAR FEATURES, POST OP DIAGNOSIS 1. CERVICAL STENOSIS, 2. CERVICAL HNP WITH UPPER EXTREMITY RADICULAR FEATURES, PROCEDURES 1. FLUORSCOPICALLY GUIDED CONTRAST CONTROLLED INTERLAMINAR EPIDURAL STEROID INJECTION - C5/6 TL FRANCINE PHYSICIAN: Niles Nicholas, DO BARRERA Junito is referred by Dr. Wesley for treatment of Cervical HNP with Upper Extremity Paresthesias. FINDINGS Cervical Stenosis due to disc deterioration and nerve root irritation and nerve root irritation DESCRIPTION OF PROCEDURE Fluoroscopically guided, contrast-controlled C5/6 translaminar epidural steroid injection with conscious sedation. Following review of allergy and review of potential side effects and complications, including, but not necessarily limited to, infection, allergic reaction, local tissue breakdown, temporary as well as permanent nerve injury, stroke, paralysis, and possible , the patient indicated that patient understood and agreed to proceed. An informed consent document was signed by the patient, witnessed by a nurse, and placed in the patient's chart. Additionally, other treatment options including modalities, medications, and physical therapy were reviewed with the patient. After review of previous anaesthesic history and IV conscious sedation the patient was deemed safe to proceed with todays procedure with IV conscious sedation as ASA class II designation. Safety time-out was performed to confirm patient ID, procedure to be performed and site of procedure. IV sedation was accomplished with a combination of 2mg of Versed and 50mcg of Fentanyl administered by the RN after DO order, titrated to patient comfort during the course of the procedure while the patient remained responsive to all verbal commands. In the prone position, following sterile prep and drape of the cervical region, the C6/7 translaminar space was identified fluoroscopically. The skin was anesthetized via a 25-gauge 1.5-inch needle with 1% lidocaine solution. At this point, a 25-gauge, 2.5-inch short bevel spinal needle was atraumatically in troduced and advanced under fluoroscopic guidance into epidural space at the C6/7 translaminar space. Depth was confirmed on lateral view. Radiological data, including multiple fluoroscopic views of the cervical spine, reveal a spinal needle at the C6/7 translaminar space. Lateral views then show placement of the needle in the epidural space. Subsequent views show contrast material flowing superiorly and inferiorly in the epidural space. DSA fluoroscopy with live contrast injection, once again, confirmed no vascular or intrathecal uptake. At this point, using loss of resistance technique with saline and air, the epidural space was entered. Following negative aspiration, injection of approximately 1.5 cc of Isovue-200 with live fluoroscopy in the AP view confirmed epidural flow in the epidural space without vascular or intrathecal uptake observed. Subsequently, a test dose of 1 cc of 1% lidocaine solution was injected and patient was observed for two minutes without signs or symptoms of complications, including abdominal pain, shortness of breath, bilateral upper or lower extremity weakness, nausea and vomiting, prior to steroid injection. At this point, 3cc or 30mg of dexamethasone was then injected without incident. The patient tolerated the procedure well without signs or symptoms of complications prior to being transferred to the recovery area for further monit oring, The patient was then transferred to the recovery area where they were observed for an appropriate period of time after the injection. The patient reported a VAS score of 6 prior to the procedure and a post-procedure VAS of 0. Total Fluoroscopy Time: 37.0 seconds Total Conscious Time: 24min POST OP INSTRUCTIONS The patient was provided a Pain Log to continue to record their response to the target-specific procedure prior to follow-up visit with the referring provider. Additionally, specific post-injection care instructions and a contact number to our office were provided if concerns arise regarding possible complications associated with the procedure are suspected. Niles Nicholas DO Complications: none
--- NOTE | 2018-10-10 09:03 | PC.NURSE ---
ACCEPTED CARE OF PT IN POST PROC AREA IN STABLE CONDITION
== END 2018-10-10 09:54 | disposition home or self-care (01) ==
LOC: RAD 07:32
PROVIDERS: PCP Family Medicine; Visit Provider Physical Medicine & Rehabilitation
DX: M48.02 Spinal stenosis, cervical region (principal); M50.122 Cervical disc disorder at C5-C6 level with radiculopathy
CPT/HCPCS: 62321; 99152; J1100; J2250; J3010

== ENCOUNTER → 2019-03-12 12:32 | Outpatient (CLI) | payer OTHER, SELFPAY ==
[2018-06-05 10:41] VITALS: BMI 48.7
--- NOTE | 2019-03-12 | DI.RAD.S_ITS ---
PROCEDURE: XR EYE FOREIGN BODY RT INDICATIONS: foreign body in eye region-r/o metal frag for MRI TECHNIQUE: A single view of the orbits was acquired. COMPARISON: None. FINDINGS: Soft tissues: No metallic foreign bodies are visualized around the orbits. Bones: Bony structures appear unremarkable. Visualized sinuses appear clear. IMPRESSION: No foreign body suggestive of metallic fragment is found. Dictated by: Fredi Chris M.D. on 03/12/2019 at 13:41 Approved by: Fredi Chris M.D. on 03/12/2019 at 13:42
== END ==
PROVIDERS: Family Provider Family Medicine; PCP Family Medicine; Visit Provider Preventive Medicine Occupational Medicine
DX: T15.91XA Foreign body on external eye, part unspecified, right eye, initial encounter (principal)
CPT/HCPCS: 70030

== ENCOUNTER → 2020-06-09 15:40 | Outpatient (CLI) | payer OTHER, SELFPAY ==
[2018-06-05 10:41] VITALS: BMI 48.7
--- NOTE | 2020-06-09 15:43 | DI.RAD.S_ITS ---
PROCEDURE: XR CHEST 2V INDICATIONS: COUGH/DYSPNEA TECHNIQUE: 2 views of the chest were acquired. COMPARISON: [facility], CHEST 2 VIEW, 01/11/2016, 10:38. [facility], CHEST 2 VIEW, 07/01/2008, 15:16. FINDINGS: Surgical changes and devices: None. Lungs and pleura: Lungs are mildly abnormal with a chronic mild interstitial prominence and there is mildly reduced inspiratory volume. A focus of pneumonia is not found.. No pleural effusions or pneumothorax. Mediastinum: Mediastinal contours are normal. Heart size is normal. Bones and chest wall: No suspicious bony abnormalities. Soft tissues appear unremarkable. IMPRESSION: Mild chronic interstitial prominence, no focal pneumonia seen. Reduced inspiration, which crowds bronchovascular markings at each lung base. Dictated by: Fredi Chris M.D. on 06/09/2020 at 16:28 Approved by: Fredi Chris M.D. on 06/09/2020 at 16:30
== END ==
PROVIDERS: Family Provider Family Medicine; PCP Family Medicine; Referring Provider Family Medicine; Visit Provider Family Medicine
DX: R05 Cough (principal); R06.00 Dyspnea, unspecified
CPT/HCPCS: 71046

== ENCOUNTER → 2020-11-06 10:04 | Outpatient (CLI) | payer OTHER, SELFPAY ==
[2018-06-05 10:41] VITALS: BMI 48.7
[2020-11-06 11:26] LABS: COVID19 -Nasal RAPID Negative (Negative)
== END ==
PROVIDERS: Family Provider Family Medicine; PCP Family Medicine; Referring Provider Physician Assistant; Visit Provider Physician Assistant
DX: Z20.822 Contact with and (suspected) exposure to COVID-19 (principal)
CPT/HCPCS: 87635

== ENCOUNTER → 2020-12-20 12:16 | Outpatient (CLI) | payer OTHER, SELFPAY ==
[2018-06-05 10:41] VITALS: BMI 48.7
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
== END ==
PROVIDERS: Family Provider Family Medicine; PCP Family Medicine; Referring Provider Family Medicine; Visit Provider Family Medicine
DX: R05 Cough (principal); J98.11 Atelectasis; I51.7 Cardiomegaly
CPT/HCPCS: 71046

== ENCOUNTER → 2021-01-31 16:23 | Outpatient (CLI) | payer OTHER, SELFPAY ==
[2018-06-05 10:41] VITALS: BMI 48.7
--- NOTE | 2021-01-31 16:41 | DI.RAD.S_ITS ---
PROCEDURE: XR CHEST 2V INDICATIONS: COUGH/HEMOPTYSIS TECHNIQUE: 2 views of the chest were acquired. COMPARISON: [facility], CR, XR CHEST 2V, 12/20/2020, 12:18. FINDINGS: Surgical changes and devices: Lower cervical spine fixation hardware redemonstrated. Lungs and pleura: Lungs are clear. No pleural effusions or pneumothorax. Mediastinum: Mediastinal contours are normal. Heart size is normal. Bones and chest wall: No suspicious bony abnormalities. Soft tissues appear unremarkable. IMPRESSION: No acute cardiopulmonary disease. Dictated by: Amarjit Carter RR Interpreted: Duran Robert MD on 01/31/2021 at 16:54 Transcribed by: RICHARD on 01/31/2021 at 16:55 Approved by: Duran Robert M.D. on 01/31/2021 at 16:59
== END ==
PROVIDERS: Family Provider Family Medicine; PCP Family Medicine; Referring Provider Family Medicine; Visit Provider Family Medicine
DX: R04.2 Hemoptysis (principal)
CPT/HCPCS: 71046

== ENCOUNTER → 2021-02-16 15:15 | Outpatient (CLI) | payer OTHER, SELFPAY ==
[2018-06-05 10:41] VITALS: BMI 48.7
--- NOTE | 2021-02-16 15:16 | DI.CT.S_ITS ---
PROCEDURE: CT CHEST W CON INDICATIONS: Shortness of breath,Acute cough TECHNIQUE: After the administration of intravenous contrast, 5 mm thick sections acquired from the pulmonary apices to the posterior costophrenic angles. 1 mm axial lung, 5 mm thick coronal and sagittal reformats and 7 mm axial MIP were acquired. For radiation dose reduction, the following was used: automated exposure control, adjustment of mA and/or kV according to patient size. COMPARISON: None. FINDINGS: Image quality: Excellent. Lungs and pleura: Patchy bilateral airspace opacities in the costophrenic sulci. Small medial right middle lobe consolidation at the lung base. No other parenchymal masses, nodules, or pleural effusions. The airways are patent and of normal caliber. Air bronchogram in the medial right middle lobe. No bronchial wall thickening. Mediastinum: Heart size is normal. Mild coronary calcification. No pericardial effusion. No mediastinal or hilar adenopathy by size criteria. Thoracic aorta and central pulmonary arteries are normal in size. Esophagus is normal in caliber. No hiatal hernia. Bones and chest wall: No suspicious bony lesions. 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 There are prominent endplate osteophytes and disc degeneration in the upper lumbar spine. Partially imaged anterior cervical fusion hardware appears intact. No acute vertebral body compression fractures. No axillary or supraclavicular adenopathy by size criteria. Thyroid gland is not well seen . Abdomen: There is a noncalcified 2.1 cm stone in the gallbladder neck. Gallbladder is partially decompressed. Visualized upper abdominal solid organs appear otherwise normal. Upper abdominal bowel loops are normal in caliber. IMPRESSION: 1. Small bilateral lower lung consolidations without pleural effusion. 2. Cholelithiasis. Dictated by: Abby Pinzon M.D. on 02/16/2021 at 17:07 Approved by: Abby Pinzon M.D. on 02/16/2021 at 17:20
--- NOTE | 2021-02-16 15:16 | DI.ECHO.S_ITS ---
[facility] +---------+ [facility] +---------+ : : [address] : : : : [id number] : : : : Phone: [phone]+ Echocardiogram Report + + :Name: CYNDI BANKS Study Date: 02/16/2021 Height: 70 in : :[facility] ReadingLocation: Weight: 360 lb : : Gender: Male BSA: 2.7 m2 : :: 1955 Age: 65 yrs BP: 172/102 mmHg: :Reason For Study: SHORTNESS OF BREATH, ACUTE COUGH : :Ordering Physician: LEONELA, : :KIERRA Performed By: Allison Delatorre : :Referring: KIERRA GIPSON : + + Interpretation Summary This is a technically difficult study enhanced with Definity echocontrast. Sinus tachycardia. Heart rate is mostly 100-105 bpm during exam. Normal LV size and wall thickness; normal wall motion and LV systolic function. EF is 60-65%. Mild LA enlargement; otherwise normal chamber sizes. Aortic sclerosis without stenosis. Compared to prior study 03/07/2016 sinus tachycardia is new. Procedure: A two-dimensional transthoracic echocardiogram with color flow and Doppler was performed. The study quality was technically adequate. Comparison is made with the echocardiogram of 03/07/2016. The patient was in sinus tachycardia with heart rates between 90-105 bpm during the exam. Left Ventricle: The left ventricle is normal in size and wall thickness. The ejection fraction is estimated to be 60-65%. Diastolic function could not be accurately assessed due to tachycardia. Right Ventricle: The right ventricle is normal in size and function. Atria: The left atrium is mildly dilated. Right atrial size is normal. There is no Doppler evidence for an interatrial shunt. Mitral Valve: The mitral valve leaflets appear mildly thickened, but open well. There is mild mitral annular calcification. There is no mitral regurgitation noted. Aortic Valve: The aortic valve is trileaflet. The aortic valve opens well. There is no aortic valve stenosis. No aortic regurgitation is present. Tricuspid Valve: The tricuspid valve is not well visualized, but is grossly normal. No tricuspid regurgitation. Pulmonic Valve: The pulmonic valve leaflets are thin and pliable; valve motion is normal. There is no pulmonic valvular regurgitation. Great Vessels: The aortic root is normal size. The ascending aorta is at the upper limits of normal in size. The inferior vena cava was not well visualized. Pericardium/ Pleura There is no pericardial effusion. There is no pleural effusion. MMode/2D Measurements & Calculations LVIDd: 4.5 cm LVOT diam: 2.4 cm LVIDs: 3.2 cm Ao root diam: 3.7 cm FS: 28.9 % asc Aorta Diam: 3.9 cm IVSd: 0.95 cm LVPWd: 0.98 cm LV almeida. diameter/BSA (cm/m^2): 1.7 LV sys. diameter/BSA (cm/m^2): 1.2 LA A2 area: 26.8 cm2 RA long axis: 5.5 cm LA A4 area: 26.1 cm2 RA area: 20.7 cm2 LA length (vol): 6.2 cm RA vol: 66.3 ml LA vol: 95.5 ml RA : 24.7 ml/m2 LA vol index: 35.6 ml/m2 RVD1 (basal): 3.8 cm TAPSE: 3.4 cm Doppler Measurements & Calculations Ao V2 max: 155.9 cm/sec LVOT Max Teddy: 97.1 cm/sec Ao V2 mean: 109.6 cm/sec LV V1 max P.8 mmHg Ao max P.7 mmHg LV V1 VTI: 14.9 cm Ao mean P.3 mmHg EFREM(I,D): 2.5 cm2 Ao V2 VTI: 27.2 cm EFREM(V,D): 2.8 cm2 sev ratio: 0.55 EFREM indexed to BSA (cm^2/m^2): 0.93 Med Peak E' Teddy: 11.1 cm/sec PA V2 max: 124.7 cm/sec Lat Peak E' Teddy: 15.3 cm/sec PA V2 mean: 90.7 cm/sec PA mean P.7 mmHg PA pr(Accel): 41.3 mmHg SV(LVOT): 67.9 ml Electronically signed by: Izabella Marino M.D. on Reading Physician:02/17/2021 01:51 AM
== END ==
PROVIDERS: Family Provider Family Medicine; PCP Family Medicine; Referring Provider Family Medicine; Visit Provider Family Medicine
DX: R06.02 Shortness of breath (principal); R05.1 Acute cough; K80.20 Calculus of gallbladder without cholecystitis without obstruction; R91.8 Other nonspecific abnormal finding of lung field
CPT/HCPCS: 71260; 93306; Q9957; Q9967

== ENCOUNTER → 2021-05-31 11:01 | Outpatient (CLI) | payer OTHER, SELFPAY ==
[2018-06-05 10:41] VITALS: BMI 48.7
--- NOTE | 2021-06-01 15:00 | DIET.CONS ---
Visit Date: 05/31/2021 Dietary Consultation Note Assessment: 65y M attending [address] visit for help with preDM (A1c 6.1), HLD (LDL 168) and morbid obesity (BMI 48.7). Pt has been to RD before prior to covid, did keto diet and lost 50# but since then has regained all plus 10#. Pt wants to lose weight to be in better shape, have more endurance, take stress off of joints and improve overall health. Pt attends visit with who has DM2 but admits to not having formal DM education (pts spouse will get referral to DSME so pt can attend with spouse for extra support and education for the two of them). Pt has lost 5# since last doctor visit taking phenfen 35mg x3mo seems to be helping reduce appetite work injury 10y ago neck and lumbar spine is fused, shoulder surgery hasn't gone well- quite deconditioned, does PT twice weekly. Noticed he can walk to shop and back without getting winded now, previously had chairs set up along path to take frequent breaks. 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 Pt and spouse have made some changes recently: using smaller dinner plates, more items with stevia and monkfruit rather than sugar. They both quit smoking many years ago and used small, incremental changes to be successful, they feel small changes will be beneficial for [facility] lifestyle changes. Pt used to go to [employer] in to [place]. Y no longer contracted with [employer] for [employer]. They can go to [employer] but do not prefer it as they liked the [place]. Ht: 5'10 Wt: 354# BMI: 48.7 UBW: would like to get to 275# 15y ago was last time this weight. Nutrition Diagnosis: altered nutrition related laboratory values r/t boredom eating and physical inactivity aeb A1c 6.1, LDL 168, BMI 48, pt reports ADLs as only physical activity besides PT twice weekly, pt snacks frequently when bored and feeling bad about physical condition. Interventions: 1. Reiterated importance of small changes to make big overall impact. Provided León Kaur's behavior change protocol to follow as pt has had success with similar efforts to quit smoking. 2. Encouraged continued consumption of stevia as pt has HTN and steviosides help to reduce BP when in body system. Will also help keep BGs from spiking throughout the day as NNS. [facility] pt only keep [employer] peanut butter cups in home (stevia sweetened) rather than Reeces and limit intake to a few per week at most. 3. Pt likes to eat cereal, [facility] pt mix high fiber ceral with his Raisin Bran Crunch and eat out of small bowl when consuming to reduce sugar and increase dietary fiber. 4. [facility] pt and initiate membership at pool somewhere to water walk, pt will check in with insurance for options. 5. [facility] pt break up sedentary time with movement breaks. 6. Introduced pt to hunger/satiety scale. Pt to become more in tune with his actual hunger and fullness cues as he currently eats because its lunch time or out of boredom. Encouraged pt to eat at a 3 and stop at an 8. When a 5, analyze why pt is eating and use behavior change diagram to find alternate activity that is not food related. Monitoring/Evaluations: f/u in 3w to continue education and support behavior change Electronically Signed by: Marissa Ulloa 06/01/21 15:00 Clinical Dietitian [address] [address]
== END ==
PROVIDERS: Family Provider Family Medicine; PCP Family Medicine; Referring Provider Family Medicine; Visit Provider Family Medicine
DX: E66.01 Morbid (severe) obesity due to excess calories (principal); E78.5 Hyperlipidemia, unspecified; Z68.42 Body mass index [BMI] 45.0-49.9, adult; R73.03 Prediabetes
CPT/HCPCS: 97802

== ENCOUNTER → 2022-05-22 09:34 | Outpatient (CLI) | payer OTHER, SELFPAY ==
[2021-07-14 11:30] VITALS: BMI 48.7
--- NOTE | 2022-05-22 | DI.CT.S_ITS ---
PROCEDURE: CT SINUS SCREEN WO CON INDICATIONS: NASAL OBSTRUCTION/CHRONIC PANSINUSITIS TECHNIQUE: Noncontrast 3.0 mm axial images acquired from the frontal sinuses to the mid-sella, with coronal and sagittal reformats. For radiation dose reduction, the following was used: automated exposure control, adjustment of mA and/or kV according to patient size. COMPARISON: None. FINDINGS: Image quality: This examination is limited by involuntary motion artifact. Maxillary Sinuses: No bony remodeling or destruction. Sinuses are clear. Ethmoid Air Cells: No bony remodeling or destruction. Sinuses are clear. Sphenoid Sinuses: No bony remodeling or destruction. Sinuses are clear. Frontal Sinuses: Moderate mucosal thickening seen within the right frontal sinus. The right frontal sinus is poorly developed. The left frontal sinus is within normal limits. Ostiomeatal Complexes: Ostiomeatal complexes are patent. No Rema cells. Miscellaneous: Visualized intra-orbital contents are normal. No elva bullosa or paradoxical turbinate curvature. There is mild to moderate leftward nasal septal deviation. There is also a leftward directed bony nasal septal spur. IMPRESSION: Focal right frontal sinus mucosal thickening. [id number] leftward nasal septal deviation, with a leftward directed bony nasal septal spur. Dictated by: Fish Calixto M.D. on 05/22/2022 at 9:38 Approved by: Fish Calixto M.D. on 05/22/2022 at 9:40
== END ==
PROVIDERS: Family Provider Family Medicine; PCP Family Medicine; Referring Provider Otolaryngology; Visit Provider Otolaryngology
DX: J32.4 Chronic pansinusitis (principal); J34.89 Other specified disorders of nose and nasal sinuses; J34.2 Deviated nasal septum
CPT/HCPCS: 70486

== ENCOUNTER → 2024-05-15 11:22 | Outpatient (CLI) | payer OTHER, SELFPAY ==
[2021-07-14 11:30] VITALS: BMI 48.7
--- NOTE | 2024-05-15 11:25 | DI.RAD.S_ITS ---
PROCEDURE: XR LUMBAR SPINE MIN 4V INDICATIONS: Spinal stenosis of lumbar region without neurogenic claudic TECHNIQUE: 5 views of the lumbar spine acquired, including flexion and extension views. COMPARISON: [facility], , L-SPINE 6V INCLUDING BENDING, 07/17/2014, 8:14. FINDINGS: Lumbar spine curvature and alignment: Mild levoscoliosis appreciated. Bones: Moderate chronic wedge compression fractures of the visualized lower thoracic vertebral bodies from T9 through T12 and L1 again noted. Grade 1 L4-5 spondylolisthesis due to degenerate facet disease appreciated. Disc spaces: Anterior/posterior L5-S1 fusion provided by interbody graft, pedicle screws short interbody struts. There is approximately 6 mm of residual L5 anterior subluxation. Moderate degenerative disc disease T10-11 through L1-2 and and L3-4 appreciated. There is severe degenerative facet disease L3-4 L4-5 L5-S1. Soft tissues: No soft tissue swelling, calcification or mass. IMPRESSION: L5-S1 anterior/posterior fusion with slight residual L5 anterior subluxation Multilevel degeneration Moderate chronic compression fractures lower thoracic spine and L1 Dictated by: Shan Gayle M.D. on 05/16/2024 at 9:41 Approved by: Shan Gayle M.D. on 05/16/2024 at 9:45
== END ==
PROVIDERS: Family Provider Family Medicine; PCP Family Medicine; Referring Provider Family Medicine; Visit Provider Family Medicine
DX: M48.061 Spinal stenosis, lumbar region without neurogenic claudication (principal); M51.34 Other intervertebral disc degeneration, thoracic region; M51.369 Other intervertebral disc degeneration, lumbar region without mention of lumbar back pain or lower extremity pain; M47.816 Spondylosis without myelopathy or radiculopathy, lumbar region; M47.817 Spondylosis without myelopathy or radiculopathy, lumbosacral region; M48.54XA Collapsed vertebra, not elsewhere classified, thoracic region, initial encounter for fracture; M48.56XA Collapsed vertebra, not elsewhere classified, lumbar region, initial encounter for fracture; Z98.1 Arthrodesis status
CPT/HCPCS: 72110

== ENCOUNTER → 2024-05-26 14:41 | Outpatient (CLI) | payer OTHER, SELFPAY ==
[2021-07-14 11:30] VITALS: BMI 48.7
--- NOTE | 2024-05-26 14:42 | DI.RAD.S_ITS ---
PROCEDURE: XR DEXA AXIAL SKELETON INDICATIONS: compression fracture of body of thoracic vertebra COMPARISON: None. FINDINGS: Left Femoral Neck: Bone mineral density 0.877 g/cm2, T score 0.3 Left Hip: Bone mineral density 1.228 g/cm2, T score 2.3. Left Forearm: Bone mineral density 0.829 g/cm2, T score 2.2. Fracture Risk Calculation (when applicable): 10-year fracture risk of a major osteoporotic fracture 6.7 percent and of a hip fracture 0.4 percent. (T score greater or equal to -1.0 to: NORMAL) (T score from -1.1 to -2.4: OSTEOPENIA) (T score less than or equal to -2.5: OSTEOPOROSIS) IMPRESSION: Normal---recommend repeat DEXA as clinically indicated. Follow-up guidelines as follows: Osteoporosis: Consider a repeat DEXA and Vertebral Fracture Assessment (VFA) exam in 2 years or sooner if medically necessary, to reassess this patient's status. Osteopenia: Consider a repeat DEXA in 2-3 years to reassess this patient's status, or if there is a new clinical indication. Normal: Consider a repeat DEXA in 5 years or sooner, or if there is a new clinical indication. All treatment decisions require clinical judgment and consideration of individual patient factors, including patient preferences, comorbidities, previous drug use, risk factors not captured in the FRAX model (e.g., frailty, falls, vitamin D deficiency, increased bone turnover, interval significant decline in bone density ) and possible under- or over-estimation of fracture risk by FRAX. In addition, the NOF Guide recommends that FDA-approved medical therapies be considered in postmenopausal women and men age >= 50 years with a: * Hip or vertebral (clinical or morphometric) fracture * T-score of <=-2.5 at the spine or hip * Ten-year fracture probability by FRAX of >= 3% for hip fracture or >=20% for major osteoporotic fracture. Dictated by: Royce Dominguez M.D. on 05/26/2024 at 21:42 Approved by: Royce Dominguez M.D. on 05/26/2024 at 21:43
== END ==
PROVIDERS: Family Provider Family Medicine; PCP Family Medicine; Referring Provider Family Medicine; Visit Provider Family Medicine
DX: S22.000A Wedge compression fracture of unspecified thoracic vertebra, initial encounter for closed fracture (principal)
CPT/HCPCS: 77080

== ENCOUNTER 2024-06-02 08:15 | Outpatient (RCR) | payer OTHER, SELFPAY ==
[2021-07-14 11:30] VITALS: BMI 48.7
--- NOTE | 2024-05-20 16:28 | PT.OIE ---
Current Diagnoses Pain in left shoulder (05/20/24) Past Medical History (Last Updated 09/10/23 @ 14:50 by Junito Mcgill MD) Anxiety Benign prostatic hyperplasia with lower urinary tract symptoms C6 radiculopathy Cervical stenosis of spinal canal Cholelithiasis Depression Erectile dysfunction due to arterial insufficiency History of tobacco use Hypertension Hypothyroidism Long-term current use of testosterone replacement therapy Lower urinary tract symptoms Morbid obesity with body mass index (BMI) of 50.0 to 59.9 in adult Obstructive sleep apnea Osteoarthritis Rising PSA level Splitting of urinary stream Urinary incontinence Past Surgical History (Last Reviewed 09/10/23 @ 14:42 by Junito Mcgill MD) History of arthroscopy of both knees History of umbilical hernia repair Status post arthroscopy of shoulder Status post cervical spinal fusion Visit Care Team Role Provider Type Niles Wesley MD Family Provider Physician Primary Care Provider Specialty: [facility] Address: [address] [place] [address], [facility] Email: [email or web address] Víctor Leger MD Attending Provider Physician Referring Provider Specialty: [facility] Address: [address] [place] [address], [address] Email: [email or web address] Physical Therapy Initial Evaluation PT-OP-A Visit Information Start: 05/19/24 17:42 Freq: Status: Active Protocol: Document 05/20/24 10:46 SAK (Rec: 05/20/24 11:57 [facility] [id number]) Out-Patient Physical Therapy Visit Information Visit Information Visit Type Initial Evaluation Visit Start Time 10:46 Visit Stop Time 11:41 Visit Number 1 Evaluation Information Evaluation Date 05/20/24 PT-OP-B Current Condition Start: 05/19/24 17:42 Freq: Status: Active Protocol: Document 05/20/24 10:46 SAK (Rec: 05/20/24 11:57 [facility] [id number]) Current Condition History of Current Condition Onset Date 1 month Current Complaints left shoulder pain and dysfunction History of Current Condition 13 yrs ago RCR at [facility]. Took a long time to recover, still not 100 %. 1 month ago getting up onto tractor, slipped and all weight jammed into left shoulder. No imaging, had order for MRI, couldn't fit in MRI machine. Now to do PT before any MRI. History of PT for multiple issues, hx fusion c/s C67, lumbar fusion L5S1. Right RCR full tear retracted , total shoulder has been recommended, but told surgery not an option until loses weight. Any movement left shoulder hurts, reaching out to side, overhead. Previously has done aquatic therapy for low back. Has a Nustep at home, hasn't been able to use due to fall when desk chair not there when he went to sit. x-ray negative for LB. REports fingers left hand go numb at times (lateral 3 fingers) off an on previously due to neck. Achey shoulder pain, sharp with reaching. Ice and heat not helpful. Takes Tylenol at time, no effect, can't do NSAIDS. Voltaren helps a little. wakes up due to pain. Patient retired now, was on disability prior. Prior Treatments and Tests PT Future Testing and Treatments Planned REturn to doctor if PT not helpful Treatment Goals Patient/Caregiver Goals decrease pain, be able to use arm to reach and do prior level of function. Current Functional Impairments (Reported) Functional Limitations- ADL's painful, unable to reach Functional Limitations- Work/School retired Functional Limitations- Recreation/ unable Hobbies PT-OP-C Subjective Start: 05/19/24 17:42 Freq: Status: Active Protocol: Document 05/20/24 10:46 [facility] (Rec: 05/21/24 16:26 [facility] [id number]) Patient Questionnaires Quick Dash- Upper Extremity Quick Dash UE Score 75 OP-PT Pain Assessment Location left shoulder Intensity 8 Description Aching,Pinching,Sharp,Tender Frequency Frequent Pain Aggravating Factors ADL's,Activity,Lifting Other Pain Aggravating Factors reaching Pain Alleviating Factors None Comments Pain Comments pain 5-8/10 PT-OP-F Manual Assessment Start: 05/19/24 17:42 Freq: Status: Active Protocol: Document 05/20/24 10:46 [facility] (Rec: 05/21/24 16:26 [facility] [id number]) Manual Assessments Soft Tissue Assessment Soft Tissue Mobility Assessment tender to palpation zita medial GH joint line Joint Mobility Assessment Joint Mobility Assessment dec inf glide and posterior glide PT-OP-H Neuro Start: 05/19/24 17:42 Freq: Status: Active Protocol: Document 05/20/24 10:46 SAK (Rec: 05/21/24 16:26 [facility] [id number]) Sensation Evaluation Gross Sensation Gross Sensation WNL PT-OP-J Posture/Palpation/Skin Start: 05/19/24 17:42 Freq: Status: Active Protocol: Document 05/20/24 10:46 SAK (Rec: 05/21/24 16:26 [facility] [id number]) Posture Evaluation Position Sitting Head/C-Spine Posture Forward Head T-Spine Posture Increased Kyphosis Scapula Posture (L) Protracted,(R) Protracted Arm Posture (L) Internally Rotated,(R) Internally Rotated PT-OP-K Range of Motion Start: 05/19/24 17:42 Freq: Status: Active Protocol: Document 05/20/24 10:46 SAK (Rec: 05/20/24 11:57 [facility] [id number]) Shoulder Goniometric Range of Motion Shoulder Left Flexion 160 Extension 10 Abduction 145 Horizontal Abduction 50 External Rotation at 45 degrees 45 Abduction External Rotation at 0 degrees Abduction 40 Internal Rotation Behind Back (text) L5 Shoulder ROM Limitations Shoulder ROM Limitations Pain PT-OP-L Special Tests Start: 05/19/24 17:42 Freq: Status: Active Protocol: Document 05/20/24 10:46 SAK (Rec: 05/21/24 16:26 [facility] [id number]) Special Tests Shoulder Special Tests Elevation Impingement Test Results + Apprehension Test Test Results - [place] Test Test Results + Drop Arm Rotator Cuff Test Results - PT-OP-M Strength Start: 05/19/24 17:42 Freq: Status: Active Protocol: Document 05/20/24 10:46 SAK (Rec: 05/20/24 11:57 [facility] [id number]) Shoulder Strength Shoulder Manual Muscle Testing Left Flexion 3+ Fair+ Extension 4- Good- Abduction (C5) 3+ Fair+ External Rotation 3+ Fair+ Internal Rotation 4- Good- Elbow/Forearm Strength Elbow and Forearm Manual Muscle Testing Left Flexion (C6) 4 Good Extension (C7) 4 Good PT-OP-Q Treatments Start: 05/19/24 17:42 Freq: Status: Active Protocol: Document 05/20/24 10:46 SAK (Rec: 05/20/24 11:57 [facility] [id number]) Self-Care/Home Management Treatment Education Patient Education Home Exercise Program Other Education issued written HO: scap squeeze, shoulder isometrics PT-OP-R Modalities Start: 05/19/24 17:42 Freq: Status: Active Protocol: Document 05/20/24 10:46 [facility] (Rec: 05/20/24 11:57 [facility] [id number]) Electric Stimulation Electric Stimulation Interferential Current (IFC) Body Location left shoulder Intensity 14 Target/Sweep Sweep Patient Position Hooklying Combined With Heat/Cold Cold Pack PT-OP-T Assessment and Plan Start: 05/19/24 17:42 Freq: Status: Active Protocol: Document 05/20/24 10:46 [facility] (Rec: 05/20/24 11:57 [facility] [id number]) Physical Therapy Assessment Goals Three Impairment impaired ROM and strength left shoulder Short Term Goal (STG) Patient will be instructed in HEP for purposes of left shoulder ROM and strengthening STG Duration 07/01/24 Valve Maker Goal (LTG) Patient will be independent and compliant with HEP as demonstrate ROM improvement to WNL and strength to at least 4+/5 all mluscle groups LTG Duration 08/17/24 Two Impairment quickdash UE disability index 75% Long-Term Goal (LTG) Decrease Quickdash score to no greater than 25% as measure of improved function LTG Duration 08/17/24 One Impairment left shoulder pain as high as 8/10 Valve Maker Goal (LTG) decrease pain to no greater than 2/10 with all usual activities including reaching overhead and out to side for purposes of ADL's LTG Duration 08/17/24 Assessment Summary Assessment Patient presents to PT with function-limiting pain left shoulder s/p fall 1 month ago while getting onto tractor states he slipped and put full weight through left UE, jamming left shoulder. Has had pain and limited function left shoulder since then. No imaging; MRI initially ordered but due to patient size could not fit into local MRI machine. Doesn't want to go to [place] for MRI so physician recommended trial PT . Ice and heat not helpful, medication not helpful, unable to take NSAIDS due to prior bleed. Prior RCR left shoulder. Reports also has fully torn RCR right shoulder with retraction of tendons; states was told he is not a surgical candidate due to his weight. Pt. is 5'10, 340 lbs . Patient reported pain with resistance to all shoulder motions left. Has most pain when reaching out to the side. Drop arm test negative, [place] labral test positive. Patient instructed in isometric shoulder exercises and was issued written handout . Trial IFES with ice pack today. Feel he would benefit from PT to decrease his pain, promote healing, and improve ROM, strength and function of his left shoulder. POC was discussed and patient was in agreement. Physical Therapy Plan Frequency and Duration Frequency of Treatment 2x/Week Duration of treatment (weeks) 8 Plan of Care Start Date 05/20/24 Plan of Care End Date 08/17/24 Next Visit Focus/Plan Next Note Type Treatment Note Next Visit Plan Review HEP, trial table slide, pulleys, TB ex as tolerated. Consider ultrasound or cold laser, manual treatment. Continue IFES with CP if felt helpful.
--- NOTE | 2024-05-20 16:28 | PT.OPPOC ---
Physical, Occupational & Speech Therapy At [facility] Current Diagnoses Pain in left shoulder (05/20/24) Visit Care Team Role Provider Type Niles Wesley MD Family Provider Physician Primary Care Provider Specialty: Family Practice Address: [address], [facility] [place], [address] Email: [email or web address] [email or web address] [email or web address] MD Attending Provider Physician Referring Provider Specialty: [facility] Practice Address: [address] [facility], [place], [address] Email: [email or web address] Plan Of Care PT-OP-B Current Condition Start: 05/19/24 17:42 Freq: Status: Active Protocol: Document 05/20/24 10:46 [facility] (Rec: 05/20/24 11:57 [facility] [id number]) Current Condition History of Current Condition Onset Date 1 month Current Complaints left shoulder pain and dysfunction History of Current Condition 13 yrs ago RCR at [facility]. Took a long time to recover, still not 100 %. 1 month ago getting up onto tractor, slipped and all weight jammed into left shoulder. No imaging, had order for MRI, couldn't fit in MRI machine. Now to do PT before any MRI. History of PT for multiple issues, hx fusion c/s C67, lumbar fusion L5S1. Right RCR full tear retracted , total shoulder has been recommended, but told surgery not an option until loses weight. Any movement left shoulder hurts, reaching out to side, overhead. Previously has done aquatic therapy for low back. Has a Nustep at home, hasn't been able to use due to fall when desk chair not there when he went to sit. x-ray negative for LB. REports fingers left hand go numb at times (lateral 3 fingers) off an on previously due to neck. Achey shoulder pain, sharp with reaching. Ice and heat not helpful. Takes Tylenol at time, no effect, can't do NSAIDS. Voltaren helps a little. wakes up due to pain. Patient retired now, was on disability prior. Prior Treatments and Tests PT Future Testing and Treatments Planned REturn to doctor if PT not helpful Treatment Goals Patient/Caregiver Goals decrease pain, be able to use arm to reach and do prior level of function. Current Functional Impairments (Reported) Functional Limitations- ADL's painful, unable to reach Functional Limitations- Work/School retired Functional Limitations- Recreation/ unable Hobbies PT-OP-T Assessment and Plan Start: 05/19/24 17:42 Freq: Status: Active Protocol: Document 05/20/24 10:46 [facility] (Rec: 05/20/24 11:57 [facility] [id number]) Physical Therapy Assessment Goals Three Impairment impaired ROM and strength left shoulder Short Term Goal (STG) Patient will be instructed in HEP for purposes of left shoulder ROM and strengthening STG Duration 07/01/24 Floater Operator Goal (LTG) Patient will be independent and compliant with HEP as demonstrate ROM improvement to WNL and strength to at least 4+/5 all mluscle groups LTG Duration 08/17/24 Two Impairment quickdash UE disability index 75% [facility] Goal (LTG) Decrease Quickdash score to no greater than 25% as measure of improved function LTG Duration 08/17/24 One Impairment left shoulder pain as high as 8/10 Floater Operator Goal (LTG) decrease pain to no greater than 2/10 with all usual activities including reaching overhead and out to side for purposes of ADL's LTG Duration 08/17/24 Assessment Summary Assessment Patient presents to PT with function-limiting pain left shoulder s/p fall 1 month ago while getting onto tractor states he slipped and put full weight through left UE, jamming left shoulder. Has had pain and limited function left shoulder since then. No imaging; MRI initially ordered but due to patient size could not fit into local MRI machine. Doesn't want to go to [place] for MRI so physician recommended trial PT . Ice and heat not helpful, medication not helpful, unable to take NSAIDS due to prior bleed. Prior RCR left shoulder. Reports also has fully torn RCR right shoulder with retraction of tendons; states was told he is not a surgical candidate due to his weight. Pt. is 5'10, 340 lbs . Patient reported pain with resistance to all shoulder motions left. Has most pain when reaching out to the side. Drop arm test negative, [place]' [place] labral test positive. Patient instructed in isometric shoulder exercises and was issued written handout . Trial IFES with ice pack today. Feel he would benefit from PT to decrease his pain, promote healing, and improve ROM, strength and function of his left shoulder. POC was discussed and patient was in agreement. Physical Therapy Plan Frequency and Duration Frequency of Treatment 2x/Week Duration of treatment (weeks) 8 Plan of Care Start Date 05/20/24 Plan of Care End Date 08/17/24 Next Visit Focus/Plan Next Note Type Treatment Note Next Visit Plan Review HEP, trial table slide, pulleys, TB ex as tolerated. Consider ultrasound or cold laser, manual treatment. Continue IFES with CP if felt helpful. Plan of Care Dates Plan of Care Start Date 05/20/24 Plan of Care End Date 08/17/24 Electronically Signed by: Wendy Roth, PT 05/21/24 5708 If you are in agreement with this Plan of Care, please return a signed and dated copy. I have reviewed this Plan of Care and certify that the skilled therapy services above are required to meet the patient?s needs. Physician Signature Date Printed Name and Credentials Clinical Instructor Signature Printed Name and Credentials
--- NOTE | 2024-05-22 16:45 | PT.OTN ---
Current Diagnoses Pain in left shoulder (05/22/24) Physical Therapy Treatment Note PT-OP-A Visit Information Start: 05/19/24 17:42 Freq: Status: Active Protocol: Document 05/22/24 11:33 [facility] (Rec: 05/22/24 12:25 [facility] [id number]) Out-Patient Physical Therapy Visit Information Visit Information Visit Type Treatment Note Visit Start Time 11:33 Visit Stop Time 12:30 Visit Number 2 Evaluation Information Evaluation Date 05/20/24 PT-OP-B Current Condition Start: 05/19/24 17:42 Freq: Status: Active Protocol: Document 05/22/24 11:33 [facility] (Rec: 05/22/24 12:25 [facility] [id number]) Current Condition History of Current Condition Onset Date 1 month Current Complaints left shoulder pain and dysfunction History of Current Condition 13 yrs ago RCR at [facility]. Took a long time to recover, still not 100 %. 1 month ago getting up onto tractor, slipped and all weight jammed into left shoulder. No imaging, had order for MRI, couldn't fit in MRI machine. Now to do PT before any MRI. History of PT for multiple issues, hx fusion c/s C67, lumbar fusion L5S1. Right RCR full tear retracted , total shoulder has been recommended, but told surgery not an option until loses weight. Any movement left shoulder hurts, reaching out to side, overhead. Previously has done aquatic therapy for low back. Has a Nustep at home, hasn't been able to use due to fall when desk chair not there when he went to sit. x-ray negative for LB. REports fingers left hand go numb at times (lateral 3 fingers) off an on previously due to neck. Achey shoulder pain, sharp with reaching. Ice and heat not helpful. Takes Tylenol at time, no effect, can't do NSAIDS. Voltaren helps a little. wakes up due to pain. Patient retired now, was on disability prior. Prior Treatments and Tests PT Future Testing and Treatments Planned REturn to doctor if PT not helpful Treatment Goals Patient/Caregiver Goals decrease pain, be able to use arm to reach and do prior level of function. PT-OP-C Subjective Start: 05/19/24 17:42 Freq: Status: Active Protocol: Document 05/22/24 11:33 [facility] (Rec: 05/22/24 12:25 [facility] [id number]) OP-PT Subjective Patient Comments Patient Comments Soreness from isometrics, also in right shoulder from holding towel to get in position for doing deepak ex PT-OP-F Manual Assessment Start: 05/19/24 17:42 Freq: Status: Active Protocol: Document 05/20/24 10:46 [facility] (Rec: 05/21/24 16:26 [facility] [id number]) Manual Assessments Soft Tissue Assessment Soft Tissue Mobility Assessment tender to palpation zita medial GH joint line Joint Mobility Assessment Joint Mobility Assessment dec inf glide and posterior glide PT-OP-H Neuro Start: 05/19/24 17:42 Freq: Status: Active Protocol: Document 05/20/24 10:46 [facility] (Rec: 05/21/24 16:26 [facility] [id number]) Sensation Evaluation Gross Sensation Gross Sensation WNL PT-OP-J Posture/Palpation/Skin Start: 05/19/24 17:42 Freq: Status: Active Protocol: Document 05/20/24 10:46 [facility] (Rec: 05/21/24 16:26 [facility] [id number]) Posture Evaluation Position Sitting Head/C-Spine Posture Forward Head T-Spine Posture Increased Kyphosis Scapula Posture (L) Protracted,(R) Protracted Arm Posture (L) Internally Rotated,(R) Internally Rotated PT-OP-K Range of Motion Start: 05/19/24 17:42 Freq: Status: Active Protocol: Document 05/20/24 10:46 [facility] (Rec: 05/20/24 11:57 [facility] [id number]) Shoulder Goniometric Range of Motion Shoulder Left Flexion 160 Extension 10 Abduction 145 Horizontal Abduction 50 External Rotation at 45 degrees 45 Abduction External Rotation at 0 degrees Abduction 40 Internal Rotation Behind Back (text) L5 Shoulder ROM Limitations Shoulder ROM Limitations Pain PT-OP-L Special Tests Start: 05/19/24 17:42 Freq: Status: Active Protocol: Document 05/20/24 10:46 [facility] (Rec: 05/21/24 16:26 [facility] [id number]) Special Tests Shoulder Special Tests Elevation Impingement Test Results + Apprehension Test Test Results - [place] Test Test Results + Drop Arm Rotator Cuff Test Results - PT-OP-M Strength Start: 05/19/24 17:42 Freq: Status: Active Protocol: Document 05/20/24 10:46 [facility] (Rec: 05/20/24 11:57 [facility] [id number]) Shoulder Strength Shoulder Manual Muscle Testing Left Flexion 3+ Fair+ Extension 4- Good- Abduction (C5) 3+ Fair+ External Rotation 3+ Fair+ Internal Rotation 4- Good- Elbow/Forearm Strength Elbow and Forearm Manual Muscle Testing Left Flexion (C6) 4 Good Extension (C7) 4 Good PT-OP-Q Treatments Start: 05/19/24 17:42 Freq: Status: Active Protocol: Document 05/22/24 11:33 [facility] (Rec: 05/22/24 12:25 [facility] [id number]) Therapeutic Exercises Supine Exercises ROM Supine Exercise Name left shoulder AAROM FF, scaption , ER (scap plane, arm on pillow) Reps/Minutes 10 reps ea Sitting Exercises scap squeeze Reps/Minutes 10x 5 Comments verbal and tactile cues for pain-free intensity, no elevation of shld pulleys Sitting Exercise Name flex and scap Reps/Minutes 10x ea warm ups Sitting Exercise Name sh rolls, neck rotation, sh IR /ER (straight elbows) Standing Exercises shld deepak Reps/Minutes 2x ea Comments instructed to either not use towel or attach towel to lower arm Manual Therapy Treatment Consent Patient gave verbal consent for manual Yes treatment Soft Tissue Mobilization left shoulder Body Location deltoid, RC, bicep, pecs Mobilization Type Myofascial Release,Strumming, Sustained Pressure Self-Care/Home Management Treatment Education Other Education as above, pain-free intensity and attach towel as needed to keep from hurting right shoulder when assisting for left deepak PT-OP-R Modalities Start: 05/19/24 17:42 Freq: Status: Active Protocol: Document 05/22/24 11:33 [facility] (Rec: 05/22/24 12:25 [facility] [id number]) Electric Stimulation Electric Stimulation Interferential Current (IFC) Body Location left shoulder Intensity 14 Target/Sweep Sweep Patient Position Hooklying Combined With Heat/Cold Cold Pack Ultrasound Therapy Treatment right shouilder Patient Position Sitting Mode Setting Continuous Duty Cycle 100% Intensity Setting (w/cm2) 1.5 Comments ant/lat PT-OP-T Assessment and Plan Start: 05/19/24 17:42 Freq: Status: Active Protocol: Document 05/22/24 11:33 [facility] (Rec: 05/22/24 12:25 [facility] [id number]) Physical Therapy Assessment Goals Three Impairment impaired ROM and strength left shoulder Short Term Goal (STG) Patient will be instructed in HEP for purposes of left shoulder ROM and strengthening STG Duration 07/01/24 Teacher Of Family And Consumer Science Goal (LTG) Patient will be independent and compliant with HEP as demonstrate ROM improvement to WNL and strength to at least 4+/5 all mluscle groups LTG Duration 08/17/24 Two Impairment quickdash UE disability index 75% Teacher Of Family And Consumer Science Goal (LTG) Decrease Quickdash score to no greater than 25% as measure of improved function LTG Duration 08/17/24 One Impairment left shoulder pain as high as 8/10 Long-Term Goal (LTG) decrease pain to no greater than 2/10 with all usual activities including reaching overhead and out to side for purposes of ADL's LTG Duration 08/17/24 Physical Therapy Plan Frequency and Duration Frequency of Treatment 2x/Week Duration of treatment (weeks) 8 Plan of Care Start Date 05/20/24 Plan of Care End Date 08/17/24 Therapeutic Interventions Therapeutic Interventions Home Exercise Program,Joint Mobilizations,Manual Therapy, Patient/Caregiver Education, Self-Care/Home Management,Soft Tissue Mobilization,Taping, Therapeutic Activities, Therapeutic Exercises Modalities Cold Pack/Ice Massage,Electric Stimulation,Hot Packs, Infrared Therapy,Iontophoresis ,Ultrasound Next Visit Focus/Plan Next Note Type Treatment Note Next Visit Plan ASsess respnse to last session , Continue gentle ther ex, modalities and manual PRN. review isometrics.
--- NOTE | 2024-06-02 17:28 | PT.OTN ---
Current Diagnoses Pain in left shoulder (06/02/24) Physical Therapy Treatment Note PT-OP-A Visit Information Start: 05/19/24 17:42 Freq: Status: Active Protocol: Document 06/02/24 08:15 [facility] (Rec: 06/02/24 09:04 [facility] [id number]) Out-Patient Physical Therapy Visit Information Visit Information Visit Type Treatment Note Visit Start Time 08:15 Visit Stop Time 09:10 Visit Number 3 Evaluation Information Evaluation Date 05/20/24 PT-OP-B Current Condition Start: 05/19/24 17:42 Freq: Status: Active Protocol: Document 06/02/24 08:15 [facility] (Rec: 06/02/24 09:04 [facility] [id number]) Current Condition History of Current Condition Onset Date 1 month Current Complaints left shoulder pain and dysfunction History of Current Condition 13 yrs ago RCR at [facility]. Took a long time to recover, still not 100 %. 1 month ago getting up onto tractor, slipped and all weight jammed into left shoulder. No imaging, had order for MRI, couldn't fit in MRI machine. Now to do PT before any MRI. History of PT for multiple issues, hx fusion c/s C67, lumbar fusion L5S1. Right RCR full tear retracted , total shoulder has been recommended, but told surgery not an option until loses weight. Any movement left shoulder hurts, reaching out to side, overhead. Previously has done aquatic therapy for low back. Has a Nustep at home, hasn't been able to use due to fall when desk chair not there when he went to sit. x-ray negative for LB. REports fingers left hand go numb at times (lateral 3 fingers) off an on previously due to neck. Achey shoulder pain, sharp with reaching. Ice and heat not helpful. Takes Tylenol at time, no effect, can't do NSAIDS. Voltaren helps a little. wakes up due to pain. Patient retired now, was on disability prior. Prior Treatments and Tests PT Future Testing and Treatments Planned REturn to doctor if PT not helpful Treatment Goals Patient/Caregiver Goals decrease pain, be able to use arm to reach and do prior level of function. PT-OP-C Subjective Start: 05/19/24 17:42 Freq: Status: Active Protocol: Document 06/02/24 08:15 [facility] (Rec: 06/02/24 09:04 [facility] [id number]) OP-PT Subjective Patient Comments Patient Comments Better after PT. Wall slide at home painful because furniture slide at home was sticking; going to get new one . Left hand has been going numb, thinks because of overdoing it at home. PT-OP-F Manual Assessment Start: 05/19/24 17:42 Freq: Status: Active Protocol: Document 05/20/24 10:46 [facility] (Rec: 05/21/24 16:26 [facility] [id number]) Manual Assessments Soft Tissue Assessment Soft Tissue Mobility Assessment tender to palpation zita medial GH joint line Joint Mobility Assessment Joint Mobility Assessment dec inf glide and posterior glide PT-OP-H Neuro Start: 05/19/24 17:42 Freq: Status: Active Protocol: Document 05/20/24 10:46 [facility] (Rec: 05/21/24 16:26 [facility] [id number]) Sensation Evaluation Gross Sensation Gross Sensation WNL PT-OP-J Posture/Palpation/Skin Start: 05/19/24 17:42 Freq: Status: Active Protocol: Document 05/20/24 10:46 [facility] (Rec: 05/21/24 16:26 [facility] [id number]) Posture Evaluation Position Sitting Head/C-Spine Posture Forward Head T-Spine Posture Increased Kyphosis Scapula Posture (L) Protracted,(R) Protracted Arm Posture (L) Internally Rotated,(R) Internally Rotated PT-OP-K Range of Motion Start: 05/19/24 17:42 Freq: Status: Active Protocol: Document 05/20/24 10:46 [facility] (Rec: 05/20/24 11:57 [facility] [id number]) Shoulder Goniometric Range of Motion Shoulder Left Flexion 160 Extension 10 Abduction 145 Horizontal Abduction 50 External Rotation at 45 degrees 45 Abduction External Rotation at 0 degrees Abduction 40 Internal Rotation Behind Back (text) L5 Shoulder ROM Limitations Shoulder ROM Limitations Pain PT-OP-L Special Tests Start: 05/19/24 17:42 Freq: Status: Active Protocol: Document 05/20/24 10:46 [facility] (Rec: 05/21/24 16:26 [facility] [id number]) Special Tests Shoulder Special Tests Elevation Impingement Test Results + Apprehension Test Test Results - [place] Test Test Results + Drop Arm Rotator Cuff Test Results - PT-OP-M Strength Start: 05/19/24 17:42 Freq: Status: Active Protocol: Document 05/20/24 10:46 [facility] (Rec: 05/20/24 11:57 [facility] [id number]) Shoulder Strength Shoulder Manual Muscle Testing Left Flexion 3+ Fair+ Extension 4- Good- Abduction (C5) 3+ Fair+ External Rotation 3+ Fair+ Internal Rotation 4- Good- Elbow/Forearm Strength Elbow and Forearm Manual Muscle Testing Left Flexion (C6) 4 Good Extension (C7) 4 Good PT-OP-Q Treatments Start: 05/19/24 17:42 Freq: Status: Active Protocol: Document 06/02/24 08:15 [facility] (Rec: 06/02/24 09:04 [facility] [id number]) Therapeutic Exercises Supine Exercises ROM Supine Exercise Name left shoulder AAROM FF, scaption , ER, IR (scap plane, arm on pillow), Reps/Minutes 10 reps ea Sitting Exercises scap squeeze Reps/Minutes 10x 5 Comments verbal and tactile cues for pain-free intensity, no elevation of shld pulleys Sitting Exercise Name flex and scap Reps/Minutes 10x ea warm ups Sitting Exercise Name sh rolls, neck rotation, sh IR /ER (straight elbows) Standing Exercises ER, IR Resistance L1 TB Reps/Minutes 10x Comments cues for pain-free row, sh ext Resistance L2 TB Reps/Minutes 10x tricep press Reps/Minutes 10x Comments postural cues bicep curl Equipment Used 2# Reps/Minutes 10x Comments cues for posture, thumbs up position shld deepak Standing Exercise Name HEP review Reps/Minutes 2x ea Comments no towel, cued pain-free intensity Manual Therapy Treatment Soft Tissue Mobilization left shoulder Body Location deltoid, RC, bicep, pecs Mobilization Type Myofascial Release,Strumming, Sustained Pressure Self-Care/Home Management Treatment Education Other Education issued updated HEP HO PT-OP-R Modalities Start: 05/19/24 17:42 Freq: Status: Active Protocol: Document 06/02/24 08:15 [facility] (Rec: 06/02/24 09:04 [facility] [id number]) Electric Stimulation Electric Stimulation Interferential Current (IFC) Body Location left shoulder Intensity 14 Target/Sweep Sweep Patient Position Hooklying Combined With Heat/Cold Cold Pack Ultrasound Therapy Treatment right shouilder Patient Position Sitting Mode Setting Continuous Duty Cycle 100% Intensity Setting (w/cm2) 1.5 Comments ant/lat PT-OP-T Assessment and Plan Start: 05/19/24 17:42 Freq: Status: Active Protocol: Document 06/02/24 08:15 [facility] (Rec: 06/02/24 09:04 [facility] [id number]) Physical Therapy Assessment Goals Three Impairment impaired ROM and strength left shoulder Short Term Goal (STG) Patient will be instructed in HEP for purposes of left shoulder ROM and strengthening STG Duration 07/01/24 Assistant Hvac Mechanic Goal (LTG) Patient will be independent and compliant with HEP as demonstrate ROM improvement to WNL and strength to at least 4+/5 all mluscle groups LTG Duration 08/17/24 Two Impairment quickdash UE disability index 75% Assistant Hvac Mechanic Goal (LTG) Decrease Quickdash score to no greater than 25% as measure of improved function LTG Duration 08/17/24 One Impairment left shoulder pain as high as 8/10 Long-Term Goal (LTG) decrease pain to no greater than 2/10 with all usual activities including reaching overhead and out to side for purposes of ADL's LTG Duration 08/17/24 Assessment Summary Assessment L shoulder to 118 with pulleys , 142 with wall slide. Decreased pain after PT. Demonstrates good understanding to HEP Physical Therapy Plan Frequency and Duration Frequency of Treatment 2x/Week Duration of treatment (weeks) 8 Plan of Care Start Date 05/20/24 Plan of Care End Date 08/17/24 Therapeutic Interventions Therapeutic Interventions Home Exercise Program,Joint Mobilizations,Manual Therapy, Patient/Caregiver Education, Self-Care/Home Management,Soft Tissue Mobilization,Taping, Therapeutic Activities, Therapeutic Exercises Modalities Cold Pack/Ice Massage,Electric Stimulation,Hot Packs, Infrared Therapy,Iontophoresis ,Ultrasound Next Visit Focus/Plan Next Note Type Treatment Note Next Visit Plan ASsess respnse to last session , Continue gentle ther ex, modalities and manual PRN. Review HEP as indicated
--- NOTE | 2024-08-18 09:30 | PT.OPDS ---
Current Diagnoses Pain in left shoulder (06/02/24) Visit Care Team Role Provider Type Niles Wesley MD Family Provider Physician Primary Care Provider Specialty: [facility] Address: [address], [place], [address] Email: [email or web address] Víctor Leger MD Attending Provider Physician Referring Provider Specialty: [facility] Address: [address] [facility], [place], [address] Email: [email or web address] Visit Number Visit Number 3 Discharge Summary PT-OP-B Current Condition Start: 05/19/24 17:42 Freq: Status: Active Protocol: Document 06/02/24 08:15 [facility] (Rec: 06/02/24 09:04 [facility] [id number]) Current Condition History of Current Condition Onset Date 1 month Current Complaints left shoulder pain and dysfunction History of Current Condition 13 yrs ago RCR at [facility]. Took a long time to recover, still not 100 %. 1 month ago getting up onto tractor, slipped and all weight jammed into left shoulder. No imaging, had order for MRI, couldn't fit in MRI machine. Now to do PT before any MRI. History of PT for multiple issues, hx fusion c/s C67, lumbar fusion L5S1. Right RCR full tear retracted , total shoulder has been recommended, but told surgery not an option until loses weight. Any movement left shoulder hurts, reaching out to side, overhead. Previously has done aquatic therapy for low back. Has a Nustep at home, hasn't been able to use due to fall when desk chair not there when he went to sit. x-ray negative for LB. REports fingers left hand go numb at times (lateral 3 fingers) off an on previously due to neck. Achey shoulder pain, sharp with reaching. Ice and heat not helpful. Takes Tylenol at time, no effect, can't do NSAIDS. Voltaren helps a little. wakes up due to pain. Patient retired now, was on disability prior. Prior Treatments and Tests PT Future Testing and Treatments Planned REturn to doctor if PT not helpful Treatment Goals Patient/Caregiver Goals decrease pain, be able to use arm to reach and do prior level of function. PT-OP-C Subjective Start: 05/19/24 17:42 Freq: Status: Active Protocol: Document 06/02/24 08:15 [facility] (Rec: 06/02/24 09:04 [facility] [id number]) OP-PT Subjective Patient Comments Patient Comments Better after PT. Wall slide at home painful because furniture slide at home was sticking; going to get new one . Left hand has been going numb, thinks because of overdoing it at home. PT-OP-F Manual Assessment Start: 05/19/24 17:42 Freq: Status: Active Protocol: Document 05/20/24 10:46 [facility] (Rec: 05/21/24 16:26 [facility] [id number]) Manual Assessments Soft Tissue Assessment Soft Tissue Mobility Assessment tender to palpation zita medial GH joint line Joint Mobility Assessment Joint Mobility Assessment dec inf glide and posterior glide PT-OP-H Neuro Start: 05/19/24 17:42 Freq: Status: Active Protocol: Document 05/20/24 10:46 [facility] (Rec: 05/21/24 16:26 [facility] [id number]) Sensation Evaluation Gross Sensation Gross Sensation WNL PT-OP-J Posture/Palpation/Skin Start: 05/19/24 17:42 Freq: Status: Active Protocol: Document 05/20/24 10:46 [facility] (Rec: 05/21/24 16:26 [facility] [id number]) Posture Evaluation Position Sitting Head/C-Spine Posture Forward Head T-Spine Posture Increased Kyphosis Scapula Posture (L) Protracted,(R) Protracted Arm Posture (L) Internally Rotated,(R) Internally Rotated PT-OP-K Range of Motion Start: 05/19/24 17:42 Freq: Status: Active Protocol: Document 05/20/24 10:46 [facility] (Rec: 05/20/24 11:57 [facility] [id number]) Shoulder Goniometric Range of Motion Shoulder Left Flexion 160 Extension 10 Abduction 145 Horizontal Abduction 50 External Rotation at 45 degrees 45 Abduction External Rotation at 0 degrees Abduction 40 Internal Rotation Behind Back (text) L5 Shoulder ROM Limitations Shoulder ROM Limitations Pain PT-OP-L Special Tests Start: 05/19/24 17:42 Freq: Status: Active Protocol: Document 05/20/24 10:46 [facility] (Rec: 05/21/24 16:26 [facility] [id number]) Special Tests Shoulder Special Tests Elevation Impingement Test Results + Apprehension Test Test Results - [place] Test Test Results + Drop Arm Rotator Cuff Test Results - PT-OP-M Strength Start: 05/19/24 17:42 Freq: Status: Active Protocol: Document 05/20/24 10:46 [facility] (Rec: 05/20/24 11:57 [facility] [id number]) Shoulder Strength Shoulder Manual Muscle Testing Left Flexion 3+ Fair+ Extension 4- Good- Abduction (C5) 3+ Fair+ External Rotation 3+ Fair+ Internal Rotation 4- Good- Elbow/Forearm Strength Elbow and Forearm Manual Muscle Testing Left Flexion (C6) 4 Good Extension (C7) 4 Good PT-OP-T Assessment and Plan Start: 05/19/24 17:42 Freq: Status: Active Protocol: Document 08/18/24 09:29 [facility] (Rec: 08/18/24 09:30 [facility] Laptop) Physical Therapy Plan Discharge Physical Therapy Discharge Reasons No Longer Attending PT Discharge Comments will need new prescription if wants to continue PT.
== END 2024-08-20 14:31 | disposition home or self-care (01) ==
LOC: PHYS 08:15
PROVIDERS: Family Provider Family Medicine; PCP Family Medicine; Referring Provider Family Medicine; Visit Provider Family Medicine
DX: M25.512 Pain in left shoulder (principal)
CPT/HCPCS: 97014; 97035; 97110; 97140; 97162; 97535; G0283

== ENCOUNTER → 2025-03-12 08:23 | Outpatient (CLI) | payer OTHER, SELFPAY ==
[2021-07-14 11:30] VITALS: BMI 48.7
[2025-03-12 08:56] LABS: Add Manual Diff / Slide Review NO; Hematocrit 52.0 % (41-53); Hemoglobin 17.6 g/dL (13.5-17.5); Lymphocytes Absolute Auto 2100 /uL (1100-4500); Mean Corpuscular HGB Conc 33.9 % (30-36); Mean Corpuscular Hemoglobin 30.3 PG (26-34); Mean Corpuscular Volume 89.5 fL (80-100); Platelet Count 270 X10^3/uL (150-400)
--- NOTE | 2025-03-12 09:04 | EKG_ITS ---
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
== END ==
PROVIDERS: Family Provider Family Medicine; PCP Family Medicine; Referring Provider Family Medicine; Visit Provider Family Medicine
DX: M25.511 Pain in right shoulder (principal); I10 Essential (primary) hypertension
CPT/HCPCS: 36415; 85025; 93005